=== PATIENT | male | born 1950 | race Caucasian/White ===

== ENCOUNTER → 2017-08-14 | Outpatient (CLI) | payer BC, OTHER ==
[~2017-08-14] MED LIST: ALKA-SELTZER B324 MG PO; AMBIEN 5 MG TABL5 M1 PO; ASPIR 8181 MG PO; ASPIRIN325 PO; BLOOD PRESSURE MED; CARVEDILOL3.125 MG PO; CARVEDILOL6.25 MG PO; CENTRUM SILVER1 EAC2 PO; DEMADEX 2020 MG/1 TA PO; DEMADEX20 MG PO; FLOMAX0.4 MG PO; GLIPIZIDE5 MG PO; K-DUR 20 MEQ T20 MEQ PO; KLOR-CON 1010 MEQ PO; LASIX 20 MG TAB20 MG PO; MAG6464 MG PO; NICOTINE TRANSD21 M1 TRANSDERM; NORCO 5-325 TA1 EACH PO; NYSTATIN100000 UNI SWISH&SPIT; PREDNISONE 20 M20 M1 PO; TYLENOL325 MG PO
== END ==
LOC: RAD 09:28
DX: I51.7 Cardiomegaly (principal)

== ENCOUNTER → 2017-08-29 | Outpatient (CLI) | payer BC, OTHER | LOC: RAD 10:30 | DX: R06.00 Dyspnea, unspecified (principal) ==

== ENCOUNTER → 2017-09-08 | Outpatient (CLI) | payer BC, OTHER | LOC: RAD 09:22 | DX: I51.7 Cardiomegaly (principal) ==

== ENCOUNTER 2017-09-24 12:15 | Inpatient (IN) | payer BC, OTHER ==
[~2017-09-24] VITALS: Ht 172.7 cm; Wt 114.3 kg
--- NOTE | ~2017-09-24 | EKG ---
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: alix : 1950 Requested By: Agustin Khoury Order Number: [id number] MD: Jarret Izquierdo Measurements Intervals [place] Rate: 55 P: AK: QRS: -90 QRSD: 158 T: 81 QT: 511 QTc: 489 Interpretive Statements Sinus bradycardia with competing junctional rhythm IVCD Inferior infarct, old Anterior infarct, old Compared to ECG 09/24/2017 12:26:14 Sinus tachycardia no longer present Atrial premature complex(es) no longer present Nonspecific intraventricular conduction delay is present Electronically Signed On 09-27-2017 8:02:36 CDT by Jarret Izquierdo [email or web address] <ELECTRONICALLY SIGNED> By: Jarret Izquierdo MD, [facility] 09/27/17 0802 0119 0119 Jarret Izquierdo MD, [facility] /EPI
--- NOTE | ~2017-09-24 | HC ---
[facility] [place] [address] CONSULTATION Name: VISHNU HOWARD Room #: 218-P [facility] IN ..#: [id number] Admission: 09/24/17 Attend Phys: Fab Navarro MD Discharge: 10/03/17 Date of : 46 Report #: [id number] THIS REPORT FOR: //name// CC: Fab Navarro DATE OF SERVICE: 10/02/2017 HISTORY OF PRESENT ILLNESS: The patient is a 67-year-old white male who was admitted with increasing shortness of breath. He was noted to have congestive heart failure, acute on chronic with COPD and he had a code blue respiratory arrest with intubation on 09/26/2017. He had hypoxemic respiratory failure, Klebsiella pneumonia. He has yriappov-po-pgswyk cardiomyopathy with ejection fraction of 35%. He had problems with urinary retention, was started on Flomax. He has pkym-hb-wmfzxowk aortic stenosis. He has been transferred to the progressive care unit. He has medical complexity with generalized debilitation. We are seeing him in rehabilitation medicine consultation. PAST MEDICAL HISTORY: Lqb-wjrdomf-npbbhlwss diabetes mellitus, sleep apnea with CPAP, right fem to below knee popliteal bypass, exogenous obesity. HABITS: Tobacco abuse, 2 packs per day for 50 years. Former smoker, quit greater than a year ago. History of alcohol 2-3 drinks per dinner. ALLERGIES: No known drug allergies. SOCIAL HISTORY: Lives in a house with his , 2 steps in. He did not utilize gait aids. He has home CPAP. She works outside the home. She is apparently getting kidney surgery tomorrow per his history. REVIEW OF SYSTEMS: Did not offer any current complaints of chest pain, shortness of breath or abdominal discomfort. No focal extremity pain complaints. Notes that he is weak. PHYSICAL EXAMINATION: GENERAL: A 67-year-old white male in no obvious distress. VITAL SIGNS: Last recorded temperature 97.3, pulse 80, respirations 18, and blood pressure 105/49. The patient is alert. HEENT: Appeared to be benign. NEUROLOGIC: Cranial nerves are grossly intact. Facies are symmetric. He has functional range of motion of both upper extremities with strength grade 4-/5. DTRs are trace to 1. He does have exogenous obesity. EXTREMITIES: Lower extremities, no focal calf swelling. Strength is grade 4-/5. Tone appeared to be intact. Sit to stand is contact guard assistance with gait 50 feet contact guard assistance with the walker. ASSESSMENT: A 67-year-old white male with the following problems: 1. Medical complex with generalized debilitation. 2. Acute combined systolic and diastolic heart failure. [address] [address] CONSULTATION Name: VISHNU HOWARD Room #: 218-[facility] IN M.R.#: [id number] Admission: 09/24/17 Attend Phys: Fab Navarro MD Discharge: 10/03/17 Date of : 46 Report #: [id number] 3. Moderately severe cardiomyopathy. 4. Hypoxemic respiratory failure. 5. Klebsiella pneumonia. 6. Acute renal insufficiency. 7. Urinary retention with Flomax added. 8. Hypertension. 9. Diabetes mellitus. 10. Peripheral vascular disease. 11. Obstructive sleep apnea on CPAP. 12. Exogenous obesity. PLAN: Occupational therapy is to evaluate. Physical therapy is underway. We will assess how he does with his therapies and check with his insurance regarding rehab therapy options. We will be glad to follow along with you regarding his rehab therapy needs. <ELECTRONICALLY SIGNED> By: Simon Henry MD 10/10/17 1030 1030 1215 Simon Henry MD /[facility]
--- NOTE | ~2017-09-24 | EKG ---
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: Doreen MORIN : 1950 Requested By: Myra Bowles Order Number: [id number] MD: Jarret Izquierdo Measurements Intervals [place] Rate: 116 P: 62 SD: 159 QRS: -63 QRSD: 106 T: 93 QT: 350 QTc: 487 Interpretive Statements Sinus tachycardia Atrial premature complex Left atrial enlargement RSR' in V1 or V2, probably normal variant Inferior infarct, old Poor R wave progression Baseline wander in lead(s) V2,V3 Compared to ECG 11/19/2015 07:02:34 Atrial premature complex(es) now present Nonspecific change in the ST and T-wave segments Electronically Signed On 09-24-2017 14:35:22 CDT by Jarret Izquierdo [email or web address] <ELECTRONICALLY SIGNED> By: Jarret Izquierdo MD, [facility] 09/24/17 1435 1226 1226 Jarret Izquierdo MD, [facility] /EPI
--- NOTE | ~2017-09-24 | HC ---
[facility] [place] [address] CONSULTATION Name: VISHNU HOWARD Room #: 218-P [facility] IN M.R.#: [id number] Admission: 09/24/17 Attend Phys: Fab Navarro MD Discharge: 10/03/17 Date of : 46 Report #: [id number] THIS REPORT FOR: //name// CC: Fab Navarro DATE OF SERVICE: 09/25/2017 REASON FOR CONSULTATION: Dyspnea. IMPRESSION: 1. Dyspnea, likely related to congestive heart failure. 2. Congestive heart failure, acute on chronic. 3. Chronic obstructive pulmonary disease. 4. Sleep apnea. 5. Acute kidney injury. PLAN: I agree with diuresis, aerosol therapy. We will hold his Stiolto for now. A CT chest will be done. We will follow closely with you. HISTORY OF PRESENT ILLNESS: A 67-year-old with history of cough, whitish sputum, increasing peripheral edema, orthopnea. No fever, chills or night sweats. No nausea or vomiting. Negative history of coronary artery disease, history of mitral disease home veds reviewed PAST SURGICAL HISTORY: Include peripheral vascular bypass, appendectomy, hernia repair, hydrocele, tooth extraction. MEDS REVIEWED ALLERGY PEN G SOCIAL HISTORY: Quit smoking in 2015, 2 packs a day for 50 years; has quit Positive ETOH. REVIEW OF SYSTEMS: Positive shortness of breath, cough, peripheral edema. Denies depression. PHYSICAL EXAMINATION: VITAL SIGNS: Temperature 97.2, pulse 103, respiration 28, BP 100/61. EYES: Negative icterus. NECK: Negative JVD. LUNGS: Showed decreased breath sounds. No wheeze. HEART: Regular. ABDOMEN: Bowel sounds present. EXTREMITIES: Showed trace edema. LABORATORY DATA: A pH 7.56, pCO2 of 24, pO2 130 on room air. Lactate 2.51. [facility] [address] [place] [address] CONSULTATION Name: VISHNU HOWARD Room #: 218-P [facility] IN [facility]#: [id number] Admission: 09/24/17 Attend Phys: Fab Navarro MD Discharge: 10/03/17 Date of : 46 Report #: [id number] Venous Doppler negative. White count 13.2, hemoglobin 15, platelets 228, creatinine of 1.6. We will follow closely with you. <ELECTRONICALLY SIGNED> By: Kiarra Roland MD 10/12/17 1054 1518 1755 Kiarra Roland MD /nt
--- NOTE | ~2017-09-24 | HC ---
[facility] [place] [address] CONSULTATION Name: VISHNU HOWARD Room #: 239-P ADM IN M.R.#: [id number] Admission: 09/24/17 Attend Phys: Fab Navarro MD Discharge: Date of : 46 Report #: [id number] THIS REPORT FOR: //name// CC: Fab Navarro REASON FOR CONSULTATION: Shortness of breath. HISTORY OF PRESENT ILLNESS: The patient is a 67-year-old gentleman with a history of peripheral vascular disease with peripheral revascularization, hypertension, sleep apnea and recently diagnosed diabetes. He now presents with 2-3 weeks of progressive lower extremity edema, abdominal bloating and shortness of breath. He has been severely orthopneic. He denies chest heaviness or pressure. An outpatient echocardiogram on 08/16/2017, which I reviewed demonstrated moderately severe left ventricular dysfunction with an ejection fraction of 30-35% with biatrial enlargement, aortic valve was moderately calcified and mild to moderately stenotic with a calculated valve area of 1.3 cm2. Mild mitral annular calcification was present with moderately severe to more likely severe mitral insufficiency. He denies a prior history of coronary artery disease. His breathing seemed to get worse earlier in the year when he had recurrent bouts of pneumonia in association with a tooth abscess. He has not been using his CPAP due to his breathlessness. ALLERGIES: HE IS ALLERGIC TO PENICILLIN. MEDICATIONS: Include aspirin, Lasix 20 mg daily, potassium 10 mEq daily, glipizide 5 mg twice daily. PAST MEDICAL HISTORY: Medical records have been reviewed and include a history of a fem distal bypass, sleep apnea, diabetes with a recent hemoglobin A1c of 5.2%, history of fungal pneumonia remotely. SOCIAL HISTORY: Former smoker. FAMILY HISTORY: Unremarkable for premature coronary artery disease. REVIEW OF SYSTEMS: All systems negative except as that noted above. PHYSICAL EXAMINATION: GENERAL: Reveals a pleasant gentleman who is in mild respiratory distress. VITAL SIGNS: Blood pressure is 151/71, heart rate of 110, respiratory rate of 32, oxygen saturations are 93% on supplemental oxygen. HEENT: There are neither xanthelasma, subcutaneous xanthomata, oral mucosal or digital cyanosis or kyphoscoliosis present. CHEST: Reveals diminished breath sounds at both bases. CARDIAC: Reveals a regular rate and rhythm with a 2/6 systolic murmur at the left sternal border. There is a 1/6 systolic murmur at the base. ABDOMEN: Soft and nontender. [facility] [address] [place] [address] CONSULTATION Name: VISHNU HOWARD Room #: 239-P [facility] IN [facility].#: [id number] Admission: 09/24/17 Attend Phys: Fab Navarro MD Discharge: Date of : 46 Report #: [id number] EXTREMITIES: With 1-2+ pedal edema. Radial pulses are 2+. NEUROLOGIC: He is alert with a nonfocal exam. DIAGNOSTIC DATA: EKG demonstrates sinus tachycardia with prior inferior infarct. Sodium is 130, potassium 3.6, creatinine 1.6, glucose 130. Troponin 0.07. ProBNP of 5800. White count 10.3, hemoglobin 15, hematocrit 43, platelet count 259. Chest x-ray demonstrates a small left effusion versus possible scarring and cardiomegaly. IMPRESSION: 1. Acute combined systolic and diastolic heart failure. 2. Moderately severe cardiomyopathy with an ejection fraction of 30-35%, mild to moderate aortic stenosis; severe mitral insufficiency. 3. Hypertension. 4. Diabetes. 5. Peripheral vascular disease. 6. Sleep apnea. RECOMMENDATIONS: 1. IV Lasix. 2. LATOYA and/or ARB therapy as well as carvedilol as hemodynamics allow. 3. Coronary angiography at some point. I have discussed these issues with the patient and his grandson. Further thoughts will be forthcoming based on this evaluation. Thank you for asking me to participate in his care. <ELECTRONICALLY SIGNED> By: Jarret Izquierdo MD, FACC 09/27/17 0857 1521 0724 Jarret Izquierdo MD, FACC /nt
--- NOTE | ~2017-09-24 | HC ---
[facility] [place] [address] CONSULTATION Name: VISHNU HOWARD Room #: 218-P ADM IN M.R.#: [id number] Admission: 09/24/17 Attend Phys: Fab Navarro MD Discharge: Date of : 46 Report #: [id number] THIS REPORT FOR: //name// CC: Fab Navarro REASON FOR CONSULTATION: Acute kidney injury. REASON FOR PRESENTATION: Cough and weakness. HISTORY OF PRESENT ILLNESS: A 67-year-old with history of peripheral vascular disease, status post revascularizations; hypertension, and chronic kidney disease. He is also known to have a bad heart with left ejection fractions of around 30% associated with severe mitral regurgitations. He presented to the emergency room yesterday complaining of shortness of breath. This was also associated with increasing bilateral lower extremity edema. He is known to have multiple comorbid conditions including his cardiomyopathy. He is also known to have obstructive sleep apnea. He was evaluated by Dr. Navarro few weeks ago. Recommendation was for him to be admitted; however, he refused. Because of the worsening of the symptoms, he presented for further evaluation and management. On presentation to the hospital, the patient's creatinine was around 1.6, which is his most recent labs from September 2017. After receiving a CT angiogram, his creatinine was up to 2.5. The patient's condition deteriorated overnight, code blue event had been initiated and the patient was hypotensive. He was intubated. He was moved to the intensive care unit. I am being asked to evaluate him for the kidney issues and manage his volume status. PAST MEDICAL HISTORY: 1. Obstructive sleep apnea. 2. Chronic kidney disease. 3. Peripheral vascular disease. 4. Hypertension. 5. Appendectomy. 6. Post revascularization. 7. Hernial repair. 8. Hydrocele. SOCIAL HISTORY: He quit smoking in 2014. No drug or alcohol abuse. ALLERGIES: PENICILLIN. HOME MEDICATIONS: 1. Acetaminophen. 2. Glipizide. 3. Lasix. 4. Potassium. FAMILY HISTORY: Currently, the patient is intubated and not able to provide me [facility] [address] [place] [address] CONSULTATION Name: ANITAVISHNU W Room #: 218-P [facility] IN ..#: [id number] Admission: 09/24/17 Attend Phys: Fab Navarro MD Discharge: Date of : 46 Report #: [id number] with the family history. REVIEW OF SYSTEMS: Unobtainable given the patient's mental status. PHYSICAL EXAMINATION: GENERAL: He is intubated. VITAL SIGNS: Blood pressure is marginal at 106/68. HEAD AND NECK: ET tube. CHEST: Bilateral crackles. CARDIOVASCULAR: Regular with no rub. ABDOMEN: Soft, nontender. LOWER EXTREMITIES: Edema present bilaterally. LABORATORY VALUES: Reviewed. White blood cell count 17,000. Chemistry from today revealed a sodium of 131, potassium 4.4, chloride of 93, BUN of 42, and a creatinine of 2.5. Serology is still pending. Microbiology pending. Chest x-ray reviewed, bilateral infiltrates present. ASSESSMENT, IMPRESSION, AND PLAN: 1. Respiratory failure. 2. Acute kidney injury. 3. Chronic kidney disease. 4. Cardiomyopathy. 5. Severe mitral regurgitation. 6. Contrast-induced nephropathy. 7. Obstructive sleep apnea. 8. Diabetes mellitus. 9. Hypertension. 10. From the renal perspective, his acute kidney injury is expected post-CT angiogram. 11. As for now, I will discontinue the IV fluid. 12. Initiate appropriate acute kidney injury workup. 13. Strict input and output. 14. Avoid further nephrotoxins. 15. Augment his heart medications. 16. Start Lasix drip. <ELECTRONICALLY SIGNED> By: Martin Cuevas MD 09/30/17 0923 0921 1235 Martin Cuevas MD /nt
--- NOTE | ~2017-09-24 | 2DMMODE ---
[facility] [address] [place] [address] 2 D/M-MODE ECHOCARDIOGRAM Name: ANITAVISHNU W Room #: 218-P ADM IN M.R.#: [id number] Admission: 09/24/17 Attend Phys: Fab Navarro, Discharge: Date of : 46 Date of Service: 10/02/17 1041 Report #: [id number] THIS REPORT FOR: //name// APPROVED REPORT Study performed: 10/02/2017 08:33:44 EXAM: Comprehensive 2D, Doppler, and color-flow Echocardiogram Patient Location: Echo lab Room #: 218 Status: routine BSA: 2.25 HR: 80 bpm BP: 105/49 mmHg Other Information Study Quality: Adequate Indications Mitral regurgitation. Hx: CHF, CM, DM, HTN. 2D Dimensions RVDd: 48.79 mm LVEF(%): 22.60 (>50%) IVSd: 10.88 (7-11mm) LVOT Diam: 26.48 (18-24mm) LVDd: 75.44 mm PWd: 10.23 (7-11mm) Ascending Ao: 40.51 (22-36mm) LVDs: 67.33 (25-40mm) Aortic Root: 39.89 mm Faustin's LVEF: 22.60 % Volumes Left Atrial Volume (Systole) Single Plane 4CH: 89.08 mL Single Plane 2CH: 145.92 mL LA ESV Index: 55.00 mL/m2 Aortic Valve AoV Peak Miller.: 2.36 m/s AO Peak Gr.: 22.27 mmHg LVOT Max P.17 mmHg AO Mean Gr.: 12.79 mmHg AO V2 Mean: 1.70 m/s LVOT Max V: 0.89 m/s AO V2 VTI: 45.59 cm REMI Vmax: 2.08 cm2 AI Vmax: 3.18 m/s AI Osborne: 4.07 m/s2 AI PHT: 226.63 ms [facility] [place] [address] 2 D/M-MODE ECHOCARDIOGRAM Name: VISHNU HOWARD Room #: 218-P [facility] IN ..#: [id number] Admission: 09/24/17 Attend Phys: Fab Navarro, Discharge: Date of : 46 Date of Service: 10/02/17 1041 Report #: [id number] Mitral Valve MV Decel. Time: 105.65 ms MV E Max Miller.: 0.91 m/s Pulmonary Valve PV Peak Miller.: 0.50 m/s PV Peak Gr.: 1.00 mmHg Tricuspid Valve TR Peak Miller.: 3.12 m/s RAP Estimate: 15.00 mmHg TR Peak Gr.: 38.88 mmHg PA Pressure: 54.00 mmHg Left Ventricle Left ventricle is moderately dilated. There is normal left ventricular wall thickness. Disrupted false tendon in mid-ventricle Left ventricular systolic function is moderate to severely decreased. LVEF 35%. This study is not technically sufficient to allow evaluation of the LV diastolic function. Right Ventricle The right ventricle is normal size. The right ventricular systolic function is low normal. Atria Left atrium is severely dilated. Right atrium is severely dilated. Aortic Valve Aortic valve is moderately calcified. Moderate aortic regurgitation. Mild aortic stenosis. Peak pressure gradient of 22mmHg, mean gradient of 13mmHg. Mitral Valve The mitral valve is normal in structure. Severe mitral regurgitation No evidence of mitral valve stenosis. Tricuspid Valve The tricuspid valve is normal in structure. Moderate tricuspid regurgitation. Estimated PAP is 55mmHg. Pulmonic Valve The pulmonary valve is normal in structure. Trace pulmonic regurgitation. Great Vessels [facility] [address] [place] [address] 2 D/M-MODE ECHOCARDIOGRAM Name: VISHNU HOWARD Room #: 218-P [facility] IN [facility]#: [id number] Admission: 09/24/17 Attend Phys: Fba Navarro, Discharge: Date of : 46 Date of Service: 10/02/17 1041 Report #: [id number] Aortic root is dilated at 4.0cm. Ascending aorta is dilated at 4.1cm. IVC is dilated and collapses <50% with inspiration. Pericardium There is no pericardial effusion. <Conclusion> Left ventricular systolic function is moderate to severely decreased. LVEF 35%. Both atria are dilated. Aortic valve is moderately calcified. Moderate insufficiency Mild aortic stenosis. Peak pressure gradient of 22mmHg, mean gradient of 13mmHg. The mitral valve is normal in structure. Severe mitral regurgitation Moderate tricuspid regurgitation. Estimated pulmonary artery pressure of 55mmHg. Ascending aorta is dilated at 4.1cm. There is no pericardial effusion. <ELECTRONICALLY SIGNED> By: Jarret Izquierdo MD, FACC 10/02/17 1041 104 40 Jarret Izquierdo MD, FACC /INF
--- NOTE | ~2017-09-24 | HC ---
[facility] [place] [address] CONSULTATION Name: VISHNU HOWARD Room #: 239-P ADM IN M.R.#: [id number] Admission: 09/24/17 Attend Phys: Fab Navarro MD Discharge: Date of : 46 Report #: [id number] THIS REPORT FOR: //name// CC: Fab Navarro REASON FOR CONSULTATION: I was asked to evaluate concerning possible sepsis. HISTORY OF PRESENT ILLNESS: The patient is a 67-year-old who presented on 09/24/2017 to the Emergency Room with shortness of breath, productive cough with onset approximately 3 weeks ago. He does have underlying cardiomyopathy and COPD. He has been undergoing treatment for congestive heart failure. In addition, he has had PND and orthopnea. He had been treated as an outpatient with antibiotic therapy. He had also been given increased Lasix doses for his congestive heart failure. He was seen in the outpatient clinic and recommended admission due to decompensated congestive heart failure. The patient initially declined, but then came into the Emergency Room. He denies any fever, chills or sweats. No purulent sputum production. Following admission to the hospital, he developed worsening shortness of breath and went into respiratory failure. He became bradycardiac and required intubation and mechanical ventilation last evening. He is currently sedated. Hemodynamically stable following a short course of Levophed. He is now off this, on FIO2 of 40%. He has had minimal tracheal secretions. He still has peripheral edema. His urine output was up to 1600 mL in the past 24 hours. The patient is sedated and unable to give review of systems. He does have oral intubation, both ET tube and orogastric tube. IV is in place. Indwelling Bearden catheter. No recorded diarrhea. ALLERGIES: PENICILLIN. MEDICATIONS: As noted on his MAR including Lasix, potassium, glipizide, multivitamin prior to his admission. CURRENT MEDICATIONS: As noted on his SEP. Did receive one dose of Augmentin. PAST MEDICAL HISTORY: Appendectomy, gastroesophageal reflux, mitral regurgitation, umbilical herniorrhaphy, bilateral cataract surgery, hydrocele surgery, diabetes, obstructive sleep apnea, tobacco use, right fem below knee popliteal bypass. FAMILY HISTORY: Noncontributory. SOCIAL HISTORY: Past smoker, moderate alcohol intake. PHYSICAL EXAMINATION: VITAL SIGNS: Afebrile, blood pressure is stable 100/61 with a MAP of 74. GENERAL: He was orally intubated and sedated, does arouse. He is in 2-point restraints. IV site unremarkable. SKIN: Unremarkable. 2+ [place] [address] CONSULTATION Name: VISHNU HOWARD Room #: 239-P [facility] IN M.R.#: [id number] Admission: 09/24/17 Attend Phys: Fab Navarro MD Discharge: Date of : 46 Report #: [id number] HEENT: Unremarkable. NECK: Supple. LUNGS: Few crackles in the bases bilaterally without consolidation. HEART: Regular, without appreciable murmur. ABDOMEN: Soft, no hepatosplenomegaly or mass appreciated. GENITOURINARY: External genitalia unremarkable. LABORATORY STUDIES: Sodium 131, potassium 4, bicarbonate 25. Creatinine initially 1.6, now 2.5. AST 157, ALT 120, alkaline phosphatase 111, bilirubin 2.3, lactate 6.2, procalcitonin 0.09. Troponin 0.08. BNP was 5876. INR 1.5. Hemoglobin 15.4, platelet count 227,000, white count was 16.7 with 78% segs, 13% lymphs. Urinalysis 6-15 wbc's, many rbc's, few bacteria. Blood urine culture and sputum culture pending. Chest x-ray, cardiomegaly with vascular congestion. CT scan of the chest yesterday showed mediastinal adenopathy, suspected cirrhosis, cardiomegaly. Echocardiogram showed EF of 35% with moderate aortic stenosis and severe mitral regurgitation. IMPRESSION: A 67-year-old with underlying cardiomyopathy and bivalvular heart disease, chronic obstructive pulmonary disease, respiratory failure. No acute pulmonary infiltrates otherwise. He does have a leukocytosis. He was given corticosteroids last evening. He also has acute renal failure in addition to his respiratory failure. His lactate went up to 6.2, but his procalcitonin was 0.09. I am suspecting this is as primarily cardiogenic issue with poor perfusion, this in the setting of underlying chronic obstructive pulmonary disease, now has acute renal failure and underlying suspected cirrhosis of the liver, yet to be further defined. He is allergic to PENICILLIN, reaction not known. RECOMMENDATIONS: Due to his leukocytosis and multisystem failure, recommend empiric antibiotic coverage for the next 24-48 hours pending culture results. My suspicion, however, this is a primary cardiac decompensation with congestive heart failure. <ELECTRONICALLY SIGNED> By: Nicanor Grace MD 09/27/17 1105 [id number] Nicanor Grace MD /nt
[~2017-09-24 12:15] MED LIST changes: -AMBIEN 5 MG TABL5 M1 PO; -ASPIR 8181 MG PO; -CARVEDILOL3.125 MG PO; -CARVEDILOL6.25 MG PO; -DEMADEX 2020 MG/1 TA PO; -DEMADEX20 MG PO; -FLOMAX0.4 MG PO; -K-DUR 20 MEQ T20 MEQ PO; -MAG6464 MG PO; -NYSTATIN100000 UNI SWISH&SPIT; -PREDNISONE 20 M20 M1 PO
[2017-09-24 12:21] VITALS: BP 151/75
[2017-09-24 12:51] LABS: ABSOLUTE NEUTROPHILS 8.2 thou/uL (1.4-8.2); BASOPHILS 1.1 % (0.0-2.0); EOSINOPHILS 2.8 % (0.0-3.0); HEMATOCRIT 43.7 % (42.0-52.0); MCHC 34.2 g/dL (28.0-37.0); MCV 96.6 fL (80.0-100.0); MONOCYTES 5.4 % (1.0-8.0); POLYS 79.7 % (36.0-66.0); RBC 4.53 mil/uL (4.50-6.00); RDW 15.4 % (10.5-14.5); WBC 10.3 thou/uL (4.0-11.0)
[2017-09-24 12:52] LABS: CALCIUM 9.5 mg/dL (8.5-10.1); CREATININE 1.6 mg/dL (0.7-1.3); POTASSIUM 3.6 mmol/L (3.5-5.1)
[2017-09-24 12:58] LABS: URINE BILIRUBIN NEGATIVE (Negative); URINE BLOOD NEGATIVE (Negative); URINE CLARITY CLEAR; URINE COLOR YELLOW; URINE GLUCOSE-RANDOM* NEGATIVE (Negative); URINE KETONES NEGATIVE (Negative); URINE LEUKOCYTES NEGATIVE (Negative); URINE NITRITE NEGATIVE (Negative); URINE PROTEIN (DIPSTICK) NEGATIVE (Negative); URINE SPECIFIC GRAVITY <= 1.005 (1.005-1.035); URINE UROBILINOGEN 0.2 E.U./dl (0.2-1.0)
[2017-09-24 13:01] LABS: ALBUMIN 3.6 g/dL (3.4-5.0); TOTAL BILIRUBIN 2.2 mg/dL (<0.1-1.0); TOTAL PROTEIN 7.3 g/dL (6.4-8.2); TROPONIN-I 0.07 ng/mL (<0.06)
[2017-09-24 14:03] LABS: LARGE PLATELETS RARE; PLATELET COUNT 259 thou/uL (150-400); PLATELET ESTIMATE NORMAL
[2017-09-24 17:07] VITALS: BP 151/75
[2017-09-24 17:51] VITALS: BP 142/76
[2017-09-24 21:46] VITALS: BP 104/59
[2017-09-25 00:36] VITALS: BP 107/61
[2017-09-25 04:45] VITALS: BP 110/64
[2017-09-25 05:43] LABS: CALCIUM 9.2 mg/dL (8.5-10.1); CREATININE 1.6 mg/dL (0.7-1.3); MAGNESIUM 1.9 mg/dL (1.8-2.4); POTASSIUM 4.3 mmol/L (3.5-5.1)
[2017-09-25 07:51] LABS: HEMATOCRIT 45.3 % (42.0-52.0); MCH 32.4 pg (26.0-34.0); MCHC 33.1 g/dL (28.0-37.0); MCV 97.7 fL (80.0-100.0); RBC 4.63 mil/uL (4.50-6.00); RDW 15.5 % (10.5-14.5); WBC 13.2 thou/uL (4.0-11.0)
[2017-09-25 07:59] VITALS: BP 110/61
[2017-09-25 11:46] VITALS: BP 104/62
[2017-09-25 12:06] LABS: BE(vivo) 0.8 mmol/L (-2 to +3); PO2 130.3 mmHg (80.0-100.0)
[2017-09-25 15:08] VITALS: BP 100/61
[2017-09-25 19:13] VITALS: BP 113/65
[2017-09-26] VITALS (52 sets, daily range): BP systolic 53–132; BP diastolic 11–107
[2017-09-26 00:18] LABS: BE(vivo) -7.1 mmol/L (-2 to +3); HCO3 13.6 mmol/L (22.0-26.0); PO2 128.8 mmHg (80.0-100.0); pH 7.464 (7.360-7.450); sO2 98.8 % (92.0-98.0)
[2017-09-26 00:19] LABS: PCO2 19.4 mmHg (35.0-45.0)
[2017-09-26 01:01] LABS: HEMATOCRIT 46.1 % (42.0-52.0); HEMOGLOBIN 15.4 gm/dL (14.0-18.0); MCH 32.6 pg (26.0-34.0); MCHC 33.4 g/dL (28.0-37.0); MCV 97.8 fL (80.0-100.0); RBC 4.71 mil/uL (4.50-6.00); RDW 15.2 % (10.5-14.5); WBC 17.1 thou/uL (4.0-11.0)
[2017-09-26 01:09] LABS: CALCIUM 9.3 mg/dL (8.5-10.1); CREATININE 2.5 mg/dL (0.7-1.3)
[2017-09-26 01:12] LABS: POTASSIUM 6.3 mmol/L (3.5-5.1)
[2017-09-26 01:15] LABS: ALBUMIN 3.6 g/dL (3.4-5.0); TOTAL BILIRUBIN 2.3 mg/dL (<0.1-1.0); TOTAL PROTEIN 7.3 g/dL (6.4-8.2)
[2017-09-26 01:25] LABS: BASOPHILS 0.9 % (0.0-2.0); EOSINOPHILS 0.5 % (0.0-3.0); LYMPHOCYTES 13.9 % (24.0-44.0); MONOCYTES 6.5 % (1.0-8.0); POLYS 78.2 % (36.0-66.0); WBC 16.7 thou/uL (4.0-11.0)
[2017-09-26 01:36] LABS: APTT 32.3 Seconds (24.5-32.8); D-DIMER 1.18 ug/mLFEU (0.19-0.50); FIBRINOGEN 359.8 mg/dL (210-360); INR 1.5; PROTIME 15.3 Seconds (9.3-11.4)
[2017-09-26 01:39] LABS: BE(vivo) -13.5 mmol/L (-2 to +3); HCO3 11.6 mmol/L (22.0-26.0); PCO2 26.7 mmHg (35.0-45.0); PO2 508.4 mmHg (80.0-100.0); sO2 99.9 % (92.0-98.0)
[2017-09-26 01:40] LABS: pH 7.257 (7.360-7.450)
[2017-09-26 03:50] LABS: URINE BILIRUBIN 1+ (Negative); URINE BLOOD 3+ (Negative); URINE CLARITY CLEAR; URINE COLOR YELLOW; URINE GLUCOSE-RANDOM* NEGATIVE (Negative); URINE KETONES NEGATIVE (Negative); URINE NITRITE-REFLEX NEGATIVE (Negative); URINE PROTEIN (DIPSTICK) 2+ (Negative); URINE SPECIFIC GRAVITY 1.025 (1.005-1.035)
[2017-09-26 04:11] LABS: ICTOTEST (BILI CONFIRMATORY) Positive (Negative); URINE LEUKOCYTES-REFLEX TRACE (Negative)
[2017-09-26 04:14] LABS: CASTS None Seen /LPF (None Seen); MUCUS 0-3 Light strn/LPF (None Seen); SQUAMOUS 0-3 Few /LPF (0-3)
[2017-09-26 04:15] LABS: AMORPHOUS URATES Few /LPF (None Seen); BACTERIA-REFLEX 1-9 Few /HPF (None Seen); CRYSTALS None Seen /LPF (None Seen); TRANSITIONAL EPITHEL CELL 0-3 Few /LPF (None Seen); URINE RBC >20 Many /HPF (0-2); URINE WBC-REFLEX 6-15 Few /HPF (0-5)
[2017-09-26 04:58] LABS: CALCIUM 8.8 mg/dL (8.5-10.1); CREATININE 2.5 mg/dL (0.7-1.3)
[2017-09-26 05:15] LABS: POTASSIUM 4.4 mmol/L (3.5-5.1)
[2017-09-26 06:56] LABS: BE(vivo) -0.7 mmol/L (-2 to +3); HCO3 24.2 mmol/L (22.0-26.0); pH 7.389 (7.360-7.450); sO2 99.4 % (92.0-98.0)
[2017-09-27] VITALS (25 sets, daily range): BP systolic 86–113; BP diastolic 46–63
[2017-09-27 05:13] LABS: CALCIUM 8.9 mg/dL (8.5-10.1); CREATININE 2.3 mg/dL (0.7-1.3); POTASSIUM 4.2 mmol/L (3.5-5.1)
[2017-09-27 09:27] LABS: BE(vivo) 0.9 mmol/L (-2 to +3); HCO3 26.5 mmol/L (22.0-26.0); PCO2 45.8 mmHg (35.0-45.0); PO2 102.5 mmHg (80.0-100.0); pH 7.381 (7.360-7.450); sO2 97.6 % (92.0-98.0)
[2017-09-28] VITALS (25 sets, daily range): BP systolic 82–125; BP diastolic 47–85
[2017-09-28 04:40] LABS: ALBUMIN 3.1 g/dL (3.4-5.0); CALCIUM 9.2 mg/dL (8.5-10.1); CREATININE 2.1 mg/dL (0.7-1.3); PHOSPHORUS 6.2 mg/dL (2.5-4.9); POTASSIUM 3.7 mmol/L (3.5-5.1)
[2017-09-28 05:31] LABS: BE(vivo) 4.1 mmol/L (-2 to +3); HCO3 28.9 mmol/L (22.0-26.0); PCO2 43.8 mmHg (35.0-45.0); PO2 95.7 mmHg (80.0-100.0); pH 7.437 (7.360-7.450); sO2 97.5 % (92.0-98.0)
[2017-09-28 11:01] LABS: BE(vivo) 6.9 mmol/L (-2 to +3); HCO3 32.2 mmol/L (22.0-26.0); PCO2 47.8 mmHg (35.0-45.0); PO2 98.1 mmHg (80.0-100.0); pH 7.446 (7.360-7.450); sO2 97.6 % (92.0-98.0)
[2017-09-29] VITALS (16 sets, daily range): BP systolic 97–122; BP diastolic 53–85
[2017-09-29 06:19] LABS: ALBUMIN 3.6 g/dL (3.4-5.0); CALCIUM 9.7 mg/dL (8.5-10.1); CREATININE 2.1 mg/dL (0.7-1.3); POTASSIUM 3.6 mmol/L (3.5-5.1)
[2017-09-30 04:14] LABS: ALBUMIN 3.4 g/dL (3.4-5.0); CALCIUM 9.8 mg/dL (8.5-10.1); CREATININE 2.1 mg/dL (0.7-1.3); PHOSPHORUS 4.6 mg/dL (2.5-4.9)
[2017-09-30 04:33] VITALS: BP 106/57
[2017-09-30 07:55] VITALS: BP 103/54
[2017-09-30 11:25] VITALS: BP 108/59
[2017-09-30 15:25] VITALS: BP 109/59
[2017-09-30 20:03] VITALS: BP 110/61
[2017-10-01 04:24] LABS: ALBUMIN 3.4 g/dL (3.4-5.0); CALCIUM 9.6 mg/dL (8.5-10.1); CREATININE 2.1 mg/dL (0.7-1.3); PHOSPHORUS 5.7 mg/dL (2.5-4.9); POTASSIUM 4.3 mmol/L (3.5-5.1)
[2017-10-01 05:17] VITALS: BP 111/60
[2017-10-01 08:20] VITALS: BP 103/53
[2017-10-01 12:20] VITALS: BP 104/56
[2017-10-01 15:50] VITALS: BP 116/62
[2017-10-01 20:20] VITALS: BP 111/62
[2017-10-02 03:30] LABS: HEMATOCRIT 50.4 % (42.0-52.0); HEMOGLOBIN 16.8 gm/dL (14.0-18.0); MCHC 33.4 g/dL (28.0-37.0); MCV 98.7 fL (80.0-100.0); RBC 5.1 mil/uL (4.50-6.00); RDW 16.3 % (10.5-14.5); WBC 9.3 thou/uL (4.0-11.0)
[2017-10-02 03:44] LABS: ALBUMIN 3.5 g/dL (3.4-5.0); CALCIUM 9.9 mg/dL (8.5-10.1); CREATININE 2.3 mg/dL (0.7-1.3); PHOSPHORUS 6.2 mg/dL (2.5-4.9); POTASSIUM 4.1 mmol/L (3.5-5.1)
[2017-10-02 04:07] VITALS: BP 112/54
[2017-10-02 07:50] VITALS: BP 105/49
[2017-10-02 11:05] VITALS: BP 104/54
[2017-10-02 15:20] VITALS: BP 104/54
[2017-10-02 20:10] VITALS: BP 106/51
[2017-10-03 04:40] VITALS: BP 120/60
[2017-10-03 05:22] LABS: ALBUMIN 3.6 g/dL (3.4-5.0); CALCIUM 10.1 mg/dL (8.5-10.1); CREATININE 2.4 mg/dL (0.7-1.3); POTASSIUM 3.8 mmol/L (3.5-5.1)
[2017-10-03 07:40] VITALS: BP 105/54
[2017-10-03] MEDS ORDERED: FLOMAX0.4 MG PO (10:47)
[2017-10-03] MEDS ORDERED: MAG6464 MG PO (10:48)
[2017-10-03] MEDS ORDERED: AMBIEN 5 MG TABL5 M1 PO (10:48)
[2017-10-03] MEDS ORDERED: ASPIR 8181 MG PO (10:48)
[2017-10-03] MEDS ORDERED: CARVEDILOL6.25 MG PO (10:48)
[2017-10-03] MEDS ORDERED: DEMADEX 2020 MG/1 TA PO (10:49)
[2017-10-03] MEDS ORDERED: PREDNISONE 20 M20 M1 PO (10:49)
[2017-10-03 11:20] VITALS: BP 110/52
[2017-10-03 11:44] LABS: ALBUMIN 3.7 g/dL (3.4-5.0); DIRECT BILIRUBIN 1.1 mg/dL (<0.1-0.3); TOTAL BILIRUBIN 1.9 mg/dL (<0.1-1.0); TOTAL PROTEIN 6.6 g/dL (6.4-8.2)
== END 2017-10-03 15:20 | DRG 208 ==
LOC: ER 12:15 → EROBS 13:41 → 2N 13:41 → ICU 09-26 00:45 → 2N 09-29 12:53
PROVIDERS: Family Medicine; Hospitalist; Internal Medicine; Internal Medicine Nephrology; Internal Medicine Pulmonary Disease; Physician Assistant
DX: J15.0 Pneumonia due to Klebsiella pneumoniae (principal); I50.43 Acute on chronic combined systolic (congestive) and diastolic (congestive) heart failure; J96.01 Acute respiratory failure with hypoxia; N17.9 Acute kidney failure, unspecified; I42.9 Cardiomyopathy, unspecified; I13.0 Hypertensive heart and chronic kidney disease with heart failure and stage 1 through stage 4 chronic kidney disease, or unspecified chronic kidney disease; E87.0 Hyperosmolality and hypernatremia; E11.51 Type 2 diabetes mellitus with diabetic peripheral angiopathy without gangrene; J44.9 Chronic obstructive pulmonary disease, unspecified; I35.0 Nonrheumatic aortic (valve) stenosis; G47.33 Obstructive sleep apnea (adult) (pediatric); N18.9 Chronic kidney disease, unspecified; I34.0 Nonrheumatic mitral (valve) insufficiency; E66.09 Other obesity due to excess calories; R59.0 Localized enlarged lymph nodes; K76.0 Fatty (change of) liver, not elsewhere classified; K74.60 Unspecified cirrhosis of liver; E11.22 Type 2 diabetes mellitus with diabetic chronic kidney disease; Z90.49 Acquired absence of other specified parts of digestive tract; Z98.42 Cataract extraction status, left eye; Z98.41 Cataract extraction status, right eye; Z79.899 Other long term (current) drug therapy; Z87.891 Personal history of nicotine dependence; Z88.0 Allergy status to penicillin; Z68.38 Body mass index [BMI] 38.0-38.9, adult
CPT/HCPCS: 10078; 10081

== ENCOUNTER 2017-10-03 11:36 | Inpatient (IN) | payer BC, OTHER ==
[~2017-10-03] VITALS: Ht 172.7 cm; Wt 103.2 kg
--- NOTE | ~2017-10-03 | H ---
[facility] [place] [address] HISTORY AND PHYSICAL Name: VISHNU HOWARD Room #: 514-P [facility] IN M.R.#: [id number] Admission: 10/03/17 Attend Phys: Simon Henry MD Discharge: Date of : 46 Report #: [id number] THIS REPORT FOR: //name// CC: Simon Navarro DATE OF SERVICE: 10/04/2017 HISTORY AND PHYSICAL/POST-ADMISSION PHYSICIAN EVALUATION HISTORY OF PRESENT ILLNESS: The patient is a 67-year-old white male originally admitted on 09/24/2017 with increased shortness of breath. He was noted to have congestive heart failure, acute on chronic with COPD and had a code blue respiratory arrest with intubation on 09/26/2017. He had hypoxemic respiratory failure and Klebsiella pneumonia. He has moderate to severe cardiomyopathy with ejection fraction of 35%. He has had problems with urinary retention and was started on Flomax. He has [id number] aortic stenosis. He was transferred to the progressive care unit and was noted to have significant generalized debilitation with a decrease from his premorbid functional status. He has been admitted now for acute in-hospital inpatient rehabilitation. PAST MEDICAL HISTORY: Includes non-insulin dependent diabetes mellitus, sleep apnea with CPAP, right fem to below knee popliteal bypass, exogenous obesity. HABITS: Tobacco abuse, 2 packs per day for 50 years. Former smoker, quit greater than a year ago. History of alcohol 2-3 drinks per dinner. ALLERGIES: No known drug allergies. SOCIAL HISTORY: Lives in a house with his , 2 steps in. He did not utilize gait aids. He has a home CPAP. 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 REVIEW OF SYSTEMS: No current complaints of chest pain, shortness of breath, abdominal discomfort. Complains of overall generalized weakness. PHYSICAL EXAMINATION: GENERAL: A 67-year-old obese white male in no obvious distress. VITAL SIGNS: Last recorded temperature 97.2, pulse 72, respirations 16, blood pressure 120/52. He is alert, talkative, no distress. HEENT: Facies are symmetric. CHEST: Sounded clear to auscultation. CARDIOVASCULAR: Regular rate and rhythm. ABDOMEN: Obese, bowel sounds positive, nontender. NEUROLOGIC: His facies appear symmetric and he is able to verbalize well. EXTREMITIES: He has functional range of motion of both upper extremities with strength grade 4-/5. DTRs are trace to 1. Lower extremities, no focal calf [address] [address] HISTORY AND PHYSICAL Name: VISHNU HOWARD Room #: 514-P [facility] IN .R.#: [id number] Admission: 10/03/17 Attend Phys: Simon Henry MD Discharge: Date of : 46 Report #: [id number] swelling. He does have 2+ bilateral lower extremity edema. Strength is a grade 4-/5. Tone appeared to be intact. Functionally, he has been transferring with mod assist. Gait has been short distances with mod assist without a gait device. ASSESSMENT: 1. Medical complexity with generalized debilitation. 2. Acute combined systolic and diastolic heart failure. 3. Moderate severe cardiomyopathy. 4. Hypoxemic respiratory failure. 5. Klebsiella pneumonia. 6. Acute renal insufficiency. 7. Urinary retention with Flomax added. 8. Hypertension. 9. Diabetes mellitus. 10. Peripheral vascular disease. 11. Obstructive sleep apnea on CPAP. 12. Exogenous obesity. PLAN: The patient is admitted for acute in-hospital inpatient rehabilitation. From a postadmission physician evaluation perspective, there are no relevant changes since the preadmission screening. Please see the above review of prior and current medical and functional conditions and comorbidities. Please see the patient's previous and current functional status. As far as risk of complications, he has multiple medical comorbidities as noted above. Initial plan of care involves the interdisciplinary acute inpatient rehabilitation program with goal of maximizing his functional independence, so he can hopefully return back to his prior living situation. Measurable functional goals would be for him to become modified independent with transfers, mobility and ADLs, so that he can return back to the home setting. Prognosis is reasonably good with estimated length of stay probably at least 7-10 days, pending progress. Potential barriers would include his multiple medical comorbidities and decreased functional status. The patient meets diagnostic criteria for an acute in-hospital inpatient rehabilitation stay. He meets medical necessity criteria and we will have the multiple sap bw consultant physicians continue to follow. He does have the tolerance for the rehab therapy program and has appropriate discharge goals back to the home setting. ADDENDUM: The overall plan of care is based on the preadmission screen, post-admission physician evaluation and information garnered from therapy assessments. 1. Estimated length of stay is at least 7-10 days. 2. Medical prognosis is reasonably good. 3. Anticipated interventions includes the interdisciplinary acute inpatient [facility] [address] [place] [address] HISTORY AND PHYSICAL Name: VISHNU HOWARD Room #: 514-P [facility] IN M.R.#: [id number] Admission: 10/03/17 Attend Phys: Simon Henry MD Discharge: Date of : 46 Report #: [id number] rehabilitation program with the goal of maximizing his functional independence, so he can hopefully return back to his prior living situation. 4. Anticipated functional outcomes would be for the patient to become modified independent with transfers, mobility, and ADLs. 5. Discharge destination is back home where he lives with his . 6. Expected therapy by discipline includes PT and OT 1-1/2 hours per day each five days a week throughout the duration of the acute inpatient rehabilitation stay. <ELECTRONICALLY SIGNED> By: Simon Henry MD 10/10/17 1030 0820 [id number] Simon Henry MD /[facility]
--- NOTE | ~2017-10-03 | HC ---
[facility] [place] [address] CONSULTATION Name: VISHNU HOWARD Room #: 514-P ADM IN M.R.#: [id number] Admission: 10/03/17 Attend Phys: Simon Henry MD Discharge: Date of : 46 Report #: [id number] THIS REPORT FOR: //name// CC: Simon Navarro DATE OF SERVICE: 10/07/2017 ATTENDING PHYSICIAN: Simon Henry MD BASIN TENDER: Fab Javier, PhD CLINICAL PRESENTATION: The patient is a 67-year-old male admitted to the rehab unit at [facility] for comprehensive inpatient rehabilitation program to improve functional mobility, activities of daily living and self-care and mental status secondary to deficits from medical complexity with generalized debilitation. His diagnoses include acute combined systolic and diastolic heart failure, moderately severe cardiomyopathy, hypoxemic respiratory failure, Klebsiella pneumoniae, acute renal insufficiency, urinary retention, hypertension, diabetes mellitus, peripheral vascular disease, obstructive sleep apnea on CPAP and exogenous obesity. A complete description of his medical condition and history along with medications can be found in his medical record. Neuropsychological consultation was requested to provide assistance in the assessment of cognitive and emotional status and to provide recommendations and services. Prior to this most recent medical event, he was living independently in his own home with his . The patient has been once and has one child. 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 His reported that his cognitive functioning and behavior began to show a decline beginning in April of 2018. In October, he had developed severe difficulty with breathing and went several days without sleep. The past several months he has had problems with concentration, memory and behavioral issues that suggest perseveration. She reports that he will become over focused and have trouble redirecting attention away from specific ideas and actions. He also had been increasingly irritable with decreased frustration tolerance. His behavior further declined in July and August of 2017. While much improved since his hospitalization, she does not feel that he is back to his prior level of functioning. There is no prior history of treatment for anxiety, depression or substance abuse. [facility] [address] [place] [address] CONSULTATION Name: VISHNU HOWARD Room #: 514-P [facility] IN M.R.#: [id number] Admission: 10/03/17 Attend Phys: Simon Henry MD Discharge: Date of : 46 Report #: [id number] TECHNIQUES UTILIZED: Clinical interview, review of medical records, staff consultation and behavioral observation, mini mental status exam 2 standard version, clock drawing and calibrated ideational fluency assessment (letter and category), and abstract reasoning test. EXAMINATION FINDINGS: The patient was alert and cooperative with the assessment. He was able to provide a partial history of events preceding his hospitalization. The patient was very tangential during the assessment and required frequent redirection to task. Additionally, deficits in verbal fluency were noted throughout the interview. Conversational and spontaneous speech is better maintained that confrontational speech requiring more complex organization. He does not report auditory or visual hallucinations. His mood is somewhat irritable. He has decreased insight into deficits and will tend to confabulate when having difficulty in specific task. He reports longstanding difficulty with sleep. Tiredness and fatigue is also described. His orientation to time is variable, e.g., he reported having a cardiac arrest this last week, while it had been almost 2 weeks ago. He does not report difficulty with memory, verbal fluency, appetite, anxiety, depression, or irritability. He reports having had a mild concussion at age 17. His performance on the MMSE 2 brief version was in the borderline range of impairment with a raw score of 13, T score of 35 and percentile rank of 7. The patient was 3/3 for initial registration, he was 4 or 5 for orientation to time, 5/[address] and 1/3 for immediate recall of 3 items after a brief time delay and distraction. The patient was tangential during the assessment. He also had to rely on the orientation board to assist with orientation. His performance deteriorated on the MMSE 2 standard version to a raw score of 23, T score at 33 and a percentile rank of 4. He was 1/5 for serial sevens, 2/2 for naming, 1/1 for repetition. He was 3/3 for auditory comprehension. He could read and follow a single command, and write a sentence. He was able to copy a simple geometric design. Performance in letter fluency was extremely low with a raw score of 12, T score 27, percentile rank of 1. Moderate deficits in generative speech suggested. Category fluency was extremely low with a raw score of 16, T score 19, percentile rank of less than 1. Overall, total fluency was severely impaired and extremely low with a raw score of 28, T score 19, percentile rank of less than 1. The patient also had difficulty with brief abstract reasoning with a raw score of 4/8 suggesting deficits. [facility] [address] [place] [address] CONSULTATION Name: VISHNU HOWARD Room #: 514-P [facility] IN [place]aquín#: [id number] Admission: 10/03/17 Attend Phys: Simon Henry MD Discharge: Date of : 46 Report #: [id number] The patient was able to draw clock and set the hands at a designated time. However, he had left out one of the numbers and visual spatial organization suggests reduced planning. The patient is presenting with deficits in neurocognitive functioning that involve immediate recall, sustained attention and concentration, and executive functioning. Generative speech is also showing an impairment suggesting difficulty in thought organization in complex verbal expression. Impairment is suggested in planning and problem solving. 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 RECOMMENDATIONS: Continued speech therapy to assist in the use of compensatory strategies for memory, attention/concentration and executive functioning. The patient will benefit from the assistance in developing an organized strategy when engaged in complex problem solving. The use of a memory/orientation notebook will also assist in the development and utilization of compensatory strategies. A followup neuropsychological assessment is indicated upon the patient's discharge. The assessment will further clarify the severity of cognitive deficits and assist in the development of compensatory strategies. During his rehabilitation program, encouraging him to participate, through a focus on breathing strategies to relax when necessary and providing verbal praise and complements for the achievements that had been made during therapies. However, continued areas of deficit will need to be emphasized to improve his insight. Thank you very much for allowing me to provide the consultation on this patient. <ELECTRONICALLY SIGNED> By: Fab Javier, PhD 10/07/17 1447 [id number] Fab Javier, PhD /nt
[~2017-10-03 11:36] MED LIST changes: +AMBIEN 5 MG TABL5 M1 PO; +ASPIR 8181 MG PO; +CARVEDILOL6.25 MG PO; +DEMADEX 2020 MG/1 TA PO; +FLOMAX0.4 MG PO; +MAG6464 MG PO; +PREDNISONE 20 M20 M1 PO
[2017-10-03 15:45] VITALS: BP 113/54
[2017-10-03 20:00] VITALS: BP 120/52
[2017-10-04 04:08] LABS: CREATININE 2.2 mg/dL (0.7-1.3)
[2017-10-04 04:12] LABS: POTASSIUM 2.6 mmol/L (3.5-5.1)
[2017-10-04 04:32] LABS: HEMATOCRIT 54.4 % (42.0-52.0); MCH 32.4 pg (26.0-34.0); MCV 98.2 fL (80.0-100.0); RBC 5.54 mil/uL (4.50-6.00); RDW 15.8 % (10.5-14.5); WBC 13.8 thou/uL (4.0-11.0)
[2017-10-04 07:55] VITALS: BP 102/30
[2017-10-04 20:57] VITALS: BP 98/42
[2017-10-05 07:41] LABS: ALBUMIN 3.4 g/dL (3.4-5.0); BUN 83 mg/dL (7-18); CHLORIDE 91 mmol/L (98-107); CREATININE 2.1 mg/dL (0.7-1.3); GLUCOSE 92 mg/dL (74-106); PHOSPHORUS 4.4 mg/dL (2.5-4.9); SODIUM 140 mmol/L (136-145)
[2017-10-05 07:45] LABS: CO2 > 45 mmol/L (21-32); POTASSIUM 2.9 mmol/L (3.5-5.1)
[2017-10-05 20:24] VITALS: BP 100/46
[2017-10-06 06:29] LABS: ALBUMIN 3.3 g/dL (3.4-5.0); CALCIUM 10.4 mg/dL (8.5-10.1); CREATININE 1.7 mg/dL (0.7-1.3); PHOSPHORUS 4.1 mg/dL (2.5-4.9)
[2017-10-06 06:45] LABS: POTASSIUM 2.5 mmol/L (3.5-5.1)
[2017-10-06 07:15] VITALS: BP 101/41
[2017-10-06 13:00] LABS: CALCIUM 10.1 mg/dL (8.5-10.1); POTASSIUM 3.4 mmol/L (3.5-5.1)
[2017-10-06 17:44] VITALS: BP 106/48
[2017-10-06 19:54] VITALS: BP 87/33
[2017-10-07 05:57] VITALS: BP 99/43
[2017-10-07 08:00] VITALS: BP 102/45
[2017-10-07 12:14] LABS: CALCIUM 9.7 mg/dL (8.5-10.1); CREATININE 1.8 mg/dL (0.7-1.3); POTASSIUM 3.4 mmol/L (3.5-5.1)
[2017-10-07 19:40] VITALS: BP 111/51
[2017-10-08 08:00] VITALS: BP 99/44
[2017-10-08 13:01] LABS: ALBUMIN 3.1 g/dL (3.4-5.0); CALCIUM 9.3 mg/dL (8.5-10.1); CREATININE 1.7 mg/dL (0.7-1.3); POTASSIUM 3.8 mmol/L (3.5-5.1); TOTAL BILIRUBIN 1.7 mg/dL (<0.1-1.0); TOTAL PROTEIN 6.4 g/dL (6.4-8.2)
[2017-10-08 16:25] VITALS: BP 107/54
[2017-10-08 19:42] VITALS: BP 114/49
[2017-10-09 06:40] LABS: ALBUMIN 2.8 g/dL (3.4-5.0); CALCIUM 8.6 mg/dL (8.5-10.1); CREATININE 1.4 mg/dL (0.7-1.3); PHOSPHORUS 2.3 mg/dL (2.5-4.9); POTASSIUM 3.3 mmol/L (3.5-5.1)
[2017-10-09 07:30] VITALS: BP 102/41
[2017-10-09 08:21] VITALS: BP 98/48
[2017-10-09 11:53] VITALS: BP 118/53
[2017-10-09 13:00] VITALS: BP 113/57
[2017-10-09 16:55] VITALS: BP 114/45
[2017-10-09 20:06] VITALS: BP 107/40
[2017-10-10 08:20] VITALS: BP 95/51
[2017-10-10] MEDS ORDERED: CARVEDILOL3.125 MG PO (16:53)
[2017-10-10] MEDS ORDERED: DEMADEX20 MG PO (16:55)
[2017-10-10] MEDS ORDERED: PREDNISONE 20 M20 M1 PO (16:55)
[2017-10-10] MEDS ORDERED: NYSTATIN100000 UNI SWISH&SPIT (16:56)
[2017-10-10] MEDS ORDERED: K-DUR 20 MEQ T20 MEQ PO (16:56)
[2017-10-10 20:44] VITALS: BP 105/47
[2017-10-11 08:36] VITALS: BP 125/57
[2017-10-11 13:12] VITALS: BP 125/57
[2017-10-11 17:23] VITALS: BP 120/44
[2017-10-11 17:29] VITALS: BP 122/44
== END 2017-10-11 18:22 | disposition home or self-care (01) | DRG 91 ==
PROVIDERS: Family Medicine; Hospitalist; Physical Medicine & Rehabilitation
DX: G93.1 Anoxic brain damage, not elsewhere classified (principal); I50.43 Acute on chronic combined systolic (congestive) and diastolic (congestive) heart failure; J96.01 Acute respiratory failure with hypoxia; I42.9 Cardiomyopathy, unspecified; N17.9 Acute kidney failure, unspecified; E87.3 Alkalosis; I13.0 Hypertensive heart and chronic kidney disease with heart failure and stage 1 through stage 4 chronic kidney disease, or unspecified chronic kidney disease; E87.2 Acidosis; R53.81 Other malaise; R33.9 Retention of urine, unspecified; E11.51 Type 2 diabetes mellitus with diabetic peripheral angiopathy without gangrene; G47.33 Obstructive sleep apnea (adult) (pediatric); E66.09 Other obesity due to excess calories; Z68.34 Body mass index [BMI] 34.0-34.9, adult; R41.9 Unspecified symptoms and signs involving cognitive functions and awareness; I35.0 Nonrheumatic aortic (valve) stenosis; I34.0 Nonrheumatic mitral (valve) insufficiency; G47.00 Insomnia, unspecified; E87.6 Hypokalemia; N18.9 Chronic kidney disease, unspecified; K74.60 Unspecified cirrhosis of liver; E83.52 Hypercalcemia; K59.00 Constipation, unspecified; J44.9 Chronic obstructive pulmonary disease, unspecified; I08.0 Rheumatic disorders of both mitral and aortic valves; Z87.891 Personal history of nicotine dependence; Z88.0 Allergy status to penicillin; Z88.8 Allergy status to other drugs, medicaments and biological substances
CPT/HCPCS: 10112

== ENCOUNTER → 2019-08-01 | Outpatient (CLI) | payer OTHER, BC ==
[~2019-08-01] MED LIST changes: +CARVEDILOL3.125 MG PO; +COZAAR 25 MG TA25 M1 PO; +DEMADEX20 MG PO; +FISH OIL 1,0001 EAC9 PO; +K-DUR 20 MEQ T20 MEQ PO; +MAGNESIUM250 M1 PO; +METOPROLOL SUCC25 M1 PO; +NYSTATIN100000 UNI SWISH&SPIT
== END ==
LOC: CAT 14:25
DX: M47.812 Spondylosis without myelopathy or radiculopathy, cervical region (principal); M50.322 Other cervical disc degeneration at C5-C6 level

== ENCOUNTER 2019-08-02 16:24 | Inpatient (IN) | payer OTHER, BC ==
[~2019-08-02] VITALS: Ht 177.8 cm; Wt 101.6 kg
[~2019-08-02 16:24] MED LIST changes: -COZAAR 25 MG TA25 M1 PO; -FISH OIL 1,0001 EAC9 PO; -MAGNESIUM250 M1 PO; -METOPROLOL SUCC25 M1 PO
[2019-08-02 16:50] VITALS: BP 112/68
[2019-08-02 17:23] LABS: HEMATOCRIT 37.3 % (42.0-52.0); HEMOGLOBIN 12.6 gm/dL (14.0-18.0); MCH 28.9 pg (26.0-34.0); MCHC 33.8 g/dL (28.0-37.0); MCV 85.7 fL (80.0-100.0); RBC 4.35 mil/uL (4.50-6.00); RDW 15.9 % (10.5-14.5); WBC 6.3 thou/uL (4.0-11.0)
[2019-08-02 17:44] LABS: ALBUMIN 2.6 g/dL (3.4-5.0); CALCIUM 8.8 mg/dL (8.5-10.1); CREATININE 1.3 mg/dL (0.7-1.3); TOTAL BILIRUBIN 1.4 mg/dL (<0.1-1.0); TOTAL PROTEIN 6.6 g/dL (6.4-8.2)
[2019-08-02] MEDS ORDERED: FISH OIL 1,0001 EAC9 PO (17:45)
[2019-08-02] MEDS ORDERED: COZAAR 25 MG TA25 M1 PO (17:46)
[2019-08-02 17:47] LABS: POTASSIUM 2.8 mmol/L (3.5-5.1)
[2019-08-02] MEDS ORDERED: MAGNESIUM250 M1 PO (17:47)
[2019-08-02] MEDS ORDERED: METOPROLOL SUCC25 M1 PO (17:51)
[2019-08-02 19:31] VITALS: BP 97/60
--- NOTE | 2019-08-02 19:57 | NUR ---
Received pt from the office Dr. Navarro as a direct admit. Med req done, critical labs read to Dr. Navarro. Orders and medications updated as per MD. Pt is up at brigido, gait is steady and able to ambulate with a steady gait. Pt went down to have xray done, scheduled for MRI. Pt did complain of discomfort in the abdomen and would not describe it as pain. Medication given. Pt had requested for IV to be done later since no fluids were ordered. Endorsed to the night nurse. POC followed, no signs or verbalizations of distress have been noted, diet and medication is well tolerated. Endorsed to the night nurse.
[2019-08-02 21:06] LABS: URINE BILIRUBIN 1+ (Negative); URINE BLOOD NEGATIVE (Negative); URINE CLARITY CLEAR; URINE COLOR YELLOW; URINE GLUCOSE-RANDOM* NEGATIVE (Negative); URINE KETONES NEGATIVE (Negative); URINE LEUKOCYTES-REFLEX NEGATIVE (Negative); URINE NITRITE-REFLEX NEGATIVE (Negative); URINE PROTEIN (DIPSTICK) 2+ (Negative)
[2019-08-02 21:14] LABS: BACTERIA-REFLEX None Seen /HPF (None Seen); CASTS None Seen /LPF (None Seen); CRYSTALS None Seen /LPF (None Seen); ICTOTEST (BILI CONFIRMATORY) Positive (Negative); MUCUS 0-3 Light strn/LPF (None Seen); SQUAMOUS 0-3 Few /LPF (0-3); URINE RBC None Seen /HPF (0-2); URINE WBC-REFLEX None Seen /HPF (0-5)
--- NOTE | 2019-08-03 05:38 | NUR ---
Pt. rested quietly at intervals during the night when checked on during frequent rounds. He did c/o nausea and Dr. Navarro called and new order received for ivp zofran (see cpoe). Zofran given (see emar) with some relief noted. Pt. has had intermittent periods of the hiccups. No c/o pain. Up to the bathroom with standby assistance.
[2019-08-03 06:58] LABS: CALCIUM 8.5 mg/dL (8.5-10.1); CREATININE 1.4 mg/dL (0.7-1.3); POTASSIUM 3.4 mmol/L (3.5-5.1)
[2019-08-03 07:04] LABS: ALBUMIN 2.4 g/dL (3.4-5.0); DIRECT BILIRUBIN 0.5 mg/dL (<0.1-0.2); TOTAL BILIRUBIN 1.1 mg/dL (<0.1-1.0); TOTAL PROTEIN 6.1 g/dL (6.4-8.2)
[2019-08-03 09:15] VITALS: BP 119/72
[2019-08-03 15:00] VITALS: BP 103/68
[2019-08-03 15:30] VITALS: BP 122/83
--- NOTE | 2019-08-03 19:57 | NUR ---
Assumed pt care this am, pt mentioned of the discomfort in his abdomen and the hiccups that have not stopped. VS stable, informed Dr. Navarro that zofran did not resolve this issue even with 2 doses. Family was at the bedside, lorazepam given symptoms resolved for a short period of time.FAmily had left for a while since pt was asleep, pt then used the urinal and went back to bed. At 4:30 pt called out for help since he was trying to use the urinal and felt he was going to fall thus he decided to sit on the floor. No pain was noted as per the pt, informed house sup, family and MD. Orders given and carried out updated medlist. MRI could not be done today d/t clearance from the door to door lead generation is needed and tech to put device (defibrilator) on safe mode, MD informed. FAll precautions in place. No additional diagnostics ordered in relation to the fall since pt stated there is no pain as instruted by MD. POC followed, endorsed to the night nurse.
[2019-08-03 20:20] VITALS: BP 104/63
[2019-08-04 04:24] VITALS: BP 112/54
[2019-08-04 05:40] LABS: ALBUMIN 2.3 g/dL (3.4-5.0); CALCIUM 8.3 mg/dL (8.5-10.1); CREATININE 1.2 mg/dL (0.7-1.3); POTASSIUM 3.6 mmol/L (3.5-5.1); TOTAL BILIRUBIN 1.2 mg/dL (<0.1-1.0); TOTAL PROTEIN 5.7 g/dL (6.4-8.2)
[2019-08-04 07:43] VITALS: BP 140/62
--- NOTE | 2019-08-04 07:48 | NUR ---
progress pt lethargic and mildly confused at start of shift a little off balance from ativan but got stronger and more alert as shift went by ivf's infusing as ordered pt drinking adequate amounts pt was incontinent of urine approximately 8 times aware of incontinence but unable to hold it. continue bed alarms high fall risk.
--- NOTE | 2019-08-04 12:08 | HC ---
[facility] [place] [address] CONSULTATION Name: VISHNU HOWARD Room #: 460-P ADM IN M.R.#: [id number] Admission: 08/02/19 Attend Phys: Fab Navarro MD Discharge: Date of : 46 Report #: [id number] THIS REPORT FOR: //name// CC: Fab Navarro DATE OF SERVICE: 08/03/2019 GI CONSULT HISTORY OF PRESENT ILLNESS: The patient is a very pleasant 68-year-old male who I have been asked to see for further evaluation of intractable hiccups and gastroesophageal reflux. He had a recent upper endoscopy by my partner, ____ without evidence of significant pathology. He has been treated for reflux. He has had some recent upper and lower neurologic signs with weakness in both his arms and his legs. He did have severe degenerative joint changes in the C-spine by CT scan of the C-spine. He has been unable to tolerate Thorazine for intractable hiccups. Of note, he is not having hiccups currently. He did present with severe hypokalemia, which may have contributed. ALLERGIES: He is allergic to PENICILLIN AND AMBIEN. FAMILY HISTORY: Noncontributory. SOCIAL HISTORY: Negative for alcohol abuse. PAST MEDICAL HISTORY: Notable for heart failure, aneurysm, aortic stenosis, cardiomyopathy, diabetes, encephalopathy, pneumonia, respiratory failure, mitral insufficiency, urinary retention. MEDICATIONS: Flomax, aspirin, magnesium chloride, Coreg, Demadex, prednisone, nystatin, potassium. OTHER MEDICAL HISTORY: Includes hydrocele, bilateral cataracts, sleep apnea, tobacco use for 40 years. REVIEW OF SYSTEMS: Negative for weight loss, weakness or fatigue. He denies head, eyes, ears, nose or throat complaints. He denies chest pain, chest palpitation, chest pressure, cough, shortness of breath, wheezing, genitourinary, musculoskeletal or neuropsychiatric complaints beyond that mentioned above. PHYSICAL EXAMINATION: VITAL SIGNS: The patient is afebrile. Vital signs are stable. HEENT: Nonicteric. NECK: No JVD, thyromegaly or bruits. [facility] [address] [place] [address] CONSULTATION Name: VISHNU HOWARD Andria Room #: 460-P [facility] IN ..#: [id number] Admission: 08/02/19 Attend Phys: Fab Navarro MD Discharge: Date of : 48 Report #: [id number] CARDIOVASCULAR: Regular. LUNGS: Clear. ABDOMEN: Soft, nondistended, nontender, normoactive bowel sounds. No hepatosplenomegaly. No stigmata of chronic liver disease. No abnormal masses or bruits. EXTREMITIES: Not examined. NEUROLOGIC: Not performed. RECTAL: Deferred. PERTINENT LABORATORY DATA: Include hemoglobin 12.6, MCV 85.7, RDW of 15.9, platelet count of 128, white count 6.3. Chemistry is notable for potassium 2.8, which is up to 3.4, total bilirubin 1.1 with direct bilirubin of 0.5, which is consistent with Gilbert's syndrome. AST 55, ALT 29, alkaline phosphatase 252, total protein 6.6, albumin 2.6. IMAGING STUDIES: Reveal abdominal ultrasound with gallstones, contracted gallbladder, no probe tenderness. Abdomen CT 5 years ago revealed no diaphragmatic or pulmonary process. ASSESSMENT: In summary, the patient is being treated for reflux currently and I would recommend continuing PPI therapy. If his hiccups return and they seem to have resolved with correction of his fluid and electrolyte abnormalities, then I would consider a CT of the chest to exclude an acute diaphragmatic process, which is unlikely. He has had an adverse reaction to THORAZINE, so this would not be recommended. We will follow concurrently. I appreciate the opportunity to participate in his care. <ELECTRONICALLY SIGNED> By: Guille Hernandez MD 08/04/19 1208 1218 1609 Guille Hernandez MD /nt
[2019-08-04 19:15] VITALS: BP 86/57
--- NOTE | 2019-08-04 19:51 | NUR ---
Assumed pt care this am, fall precautions in place. VS stable , pt stayed on the recliner for most of the day. Pt would have episoded of incontinence but would call appropriately, family was at bed side. hiccups are intermittent still through out the day though have decreased, bt would still bother him. Informed Dr. Navarro, GI cocktail given before shift change. Fall precautions in place, Family requesting to have Dr. Bear as GI for consult, POC followed, not signs or verbalizations of distress have been noted.
[2019-08-05 00:02] VITALS: BP 125/87
--- NOTE | 2019-08-05 07:26 | NUR ---
PROGRESS PT A/O X4 FORGETFUL AT TIMES. iNCONTINENT FREQUENTLY, [place] CATHETER PLACED D/T SLIGHT SKIN IRRITATION NOTED TO RIGHT GROIN FOLD. PT C/O SOB THIS AM AND HAS PEDAL EDEMA. INTO SEE PT DC'D FLUID TO ORDER MORE IMAGING OF ABDOMEN AND SPINE HICCUPS HAVE RETURNED AND ARE NORE PRONOUNCED THAN THE PREVIOUS SHIFT. CONTINUE TO MONITOR.
[2019-08-05 08:00] VITALS: BP 96/67
[2019-08-05 10:10] LABS: CALCIUM 8.8 mg/dL (8.5-10.1); CREATININE 1.2 mg/dL (0.7-1.3); POTASSIUM 4.5 mmol/L (3.5-5.1)
[2019-08-05 13:47] LABS: % SATURATION 19 % (20-39); IRON 33 ug/dL (65-175); TIBC 176 ug/dL (250-450)
--- NOTE | 2019-08-05 14:03 | NUR ---
INITIAL ASSESSMENT: Pt evaluated for d/c planning needs. Reviewed chart and spoke with nurse and pt. Pt is alert and oriented. Pt lives in house with spouse. Pt was independent with ADL's and has CPAP and nebulizer at home. Pt states he uses no walker or cane. Pt has not had home health in the past. Pt plans on returning home on d/c from hospital. WIll remain available to assist as needed.
[2019-08-05 15:00] VITALS: BP 99/58
[2019-08-05 19:07] LABS: IgG 811 mg/dL (700-1600)
[2019-08-05 19:14] VITALS: BP 90/61
--- NOTE | 2019-08-06 03:24 | NUR ---
PT IS A/O X4.PT IS FORGETFULLY.FALL PRECAUTION IN PLACE.PT USES URINAL.IV ACCESS ON LH SL.PT IS ACCUCHECKS ACHS .PT NPO MIDNIGHT FOR HEPATOBILIARY SCAN TODAY AM.PT DENIED PAIN ,NAUSEA AND VOMITING.WILL CONTINUE TO MONITOR PER POC
[2019-08-06 06:02] LABS: HEMATOCRIT 35.9 % (42.0-52.0); MCH 28.8 pg (26.0-34.0); MCHC 33.3 g/dL (28.0-37.0); MCV 86.4 fL (80.0-100.0); RBC 4.15 mil/uL (4.50-6.00); RDW 16.3 % (10.5-14.5); WBC 4.5 thou/uL (4.0-11.0)
[2019-08-06 06:10] LABS: INR 1.1; PROTIME 11.5 Seconds (9.3-11.4)
[2019-08-06 06:14] LABS: ALBUMIN 2.4 g/dL (3.4-5.0); CALCIUM 8.3 mg/dL (8.5-10.1); CREATININE 1.3 mg/dL (0.7-1.3); POTASSIUM 4.4 mmol/L (3.5-5.1); TOTAL BILIRUBIN 1.1 mg/dL (<0.1-1.0)
[2019-08-06 07:10] VITALS: BP 99/64
[2019-08-06 09:07] LABS: HAV IgM AB (ANTI-HAV IgM) Negative (Negative); HEPATITIS B SURFACE AG Negative (Negative); HEPATITIS C VIRUS AB <0.1 (0.0-0.9)
--- NOTE | 2019-08-06 10:15 | NUR ---
SW reviewed chart and spoke with nursing and attending physician. Surgery consulted today. Pt to have PIPIDA scan and MRI of spine today. Pt with BLE weakness. Pt will need therapy to evaluate pt for recommendation for discharge needs. RENEA is following to assist as needed with discharge planning.
[2019-08-06 14:34] VITALS: BP 114/67
[2019-08-06 15:08] LABS: CERULOPLASMIN 44.7 mg/dL (16.0-31.0)
[2019-08-06 19:19] VITALS: BP 100/60
--- NOTE | 2019-08-06 20:09 | NUR ---
Assumed pt care this am, was taken down for the hepatobilioary scan. Started on 2 gran Na diet and is well tolerated, though pt did not want ot to have his dinner and preferred a boxed sandwich. PT and OT consulted, though pt did not work with them since he felt so sleepy due to the baclofen. Hiccups are less compared to previous days and pt claims that this is the fist time in months taht something has worked and is able to go to sleep. MRI still pendiing cardio clearance, as per MRI this may happen on day given that they need to call the tech to place defib (implated) on safe mode, awaiting clearance, and MRI will be closed tomorrow for maintenance. ECG done before shift change. Pt is to have an EGD tomorrow, consent signed by DPOA () pt is to be on NPO midnight onwards. Pt exhibited confusion in late in the afternoon, witnessed by his son. POC followed, no signs or verbalizations of distress have been noted. endorsed to the night nurse.
[2019-08-06 20:51] LABS: BASOPHILS 1.1 % (0.0-2.0); EOSINOPHILS 0.9 % (0.0-3.0); HEMATOCRIT 35.6 % (42.0-52.0); HEMOGLOBIN 11.9 gm/dL (14.0-18.0); LYMPHOCYTES 16.5 % (24.0-44.0); MCH 29.1 pg (26.0-34.0); MCHC 33.5 g/dL (28.0-37.0); MCV 86.9 fL (80.0-100.0); MONOCYTES 7.1 % (1.0-8.0); PLATELET COUNT 96 thou/uL (150-400); POLYS 74.4 % (36.0-66.0); RDW 16.1 % (10.5-14.5); WBC 4.1 thou/uL (4.0-11.0)
[2019-08-06 21:23] LABS: CALCIUM 8.8 mg/dL (8.5-10.1); CREATININE 1.6 mg/dL (0.7-1.3); POTASSIUM 4.7 mmol/L (3.5-5.1)
--- NOTE | 2019-08-07 01:42 | NUR ---
PT CARE ASSUMED AT 1900 WITH PT IN BED.PT IS A/O X3.PT IS FORGETFUL AND SOMETIMES CONFUSE.PT HAS A HEART RATE OF [address] AGUIRRE CALLED.DR AGUIRRE ORDERED EKG.RESULT OF EKG DONE 1HR PRIOR WAS REPORT TO HIM AND HE ORDERED METOPROLOL 25MG ONETIME FOR HR >140.PT IS NPO FROM MIDNIGHT FOR EGD.PT IS INCONTINENT WILL CONTINUE TO MONITOR PER POC
[2019-08-07 04:10] LABS: ANA INTERPRETATION Negative (Negative)
[2019-08-07 05:51] LABS: CALCIUM 8.6 mg/dL (8.5-10.1); CREATININE 1.3 mg/dL (0.7-1.3); POTASSIUM 4.4 mmol/L (3.5-5.1)
[2019-08-07 07:11] VITALS: BP 102/68
[2019-08-07 13:08] LABS: MITOCHONDRIAL ANTIBODY <20.0 Units (0.0-20.0)
[2019-08-07 14:10] LABS: SMOOTH MUSCLE ANTIBODY 9 Units (0-19)
[2019-08-07 14:48] VITALS: BP 122/76
--- NOTE | 2019-08-07 16:02 | 2DMMODE ---
[facility] [place] [address] 2 D/M-MODE ECHOCARDIOGRAM Name: VISHNU HOWARD Room #: 460-P [facility] IN .R.#: [id number] Admission: 08/02/19 Attend Phys: Fab Navarro, Discharge: Date of : 48 Report #: [id number] THIS REPORT FOR: //name// APPROVED REPORT Study performed: 08/07/2019 09:04:26 EXAM: Comprehensive 2D, Doppler, and color-flow Echocardiogram Patient Location: Echo lab Room #: [facility] Status: routine BSA: 2.17 HR: 104 bpm BP: 108/68 mmHg Rhythm: Pacemaker Other Information Study Quality: Good Indications ICD: Congestive Heart Failure Diabetes Cardiomyopathy AVR 2D Dimensions RVDd: 39.64 mm IVSd: 12.21 (7-11mm) LVOT Diam: 25.07 (18-24mm) LVDd: 67.29 mm PWd: 12.27 (7-11mm) Ascending Ao: 39.80 (22-36mm) LVDs: 57.65 (25-40mm) Aortic Root: 38.24 mm IVC: 18.00 mm Volumes Left Atrial Volume (Systole) Single Plane 4CH: 81.88 mL Single Plane 2CH: 67.21 mL LA ESV Index: 37.00 mL/m2 Aortic Valve AoV Peak Miller.: 2.01 m/s AO Peak Gr.: 16.17 mmHg LVOT Max P.79 mmHg LVOT Max V: 0.97 m/s REMI Vmax: 2.39 cm2 [facility] [address] [address] 2 D/M-MODE ECHOCARDIOGRAM Name: VISHNU HOWARD Room #: 460-P [facility]#: [id number] Admission: 08/02/19 Attend Phys: Fab Navarro, Discharge: Date of : 48 Report #: [id number] Pulmonary Valve PV Peak Miller.: 0.75 m/s PV Peak Gr.: 2.26 mmHg Tricuspid Valve TR Peak Miller.: 2.49 m/s TR Peak Gr.: 24.77 mmHg PA Pressure: 30.00 mmHg Left Ventricle Left ventricle is dilated. There is global hypokinesis of the left ventricle. Hypertensive heart disease. Left ventricular ejection fraction is severely decreased. LVEF is 30%. This study is not technically sufficient to allow evaluation of the LV diastolic function. Right Ventricle The right ventricle is normal size. The right ventricular systolic function is normal. Atria The left atrium size is normal. The right atrium size is normal. Aortic Valve Bioprosthetic aortic valve is present. No aortic regurgitation is present. There is no aortic valvular stenosis. Mitral Valve The mitral valve is normal in structure. Mild mitral regurgitation. No evidence of mitral valve stenosis. Tricuspid Valve The tricuspid valve is normal in structure. There is mild tricuspid regurgitation. Estimated PAP 30 mmHg. There is mild pulmonary hypertension. Pulmonic Valve The pulmonary valve is normal in structure. There is no pulmonic valvular regurgitation. Great Vessels The aortic root is normal in size. IVC is normal in size and collapses >50% with inspiration. Pericardium There is no pericardial effusion. [facility] [address] [place] [address] 2 D/M-MODE ECHOCARDIOGRAM Name: VISHNU HOWARD Room #: 460-P [facility] IN [facility].#: [id number] Admission: 08/02/19 Attend Phys: Fab Navarro, Discharge: Date of : 48 Report #: [id number] <Conclusion> Left ventricular ejection fraction is severely decreased. There is global hypokinesis of the left ventricle. LVEF is 30%. Bioprosthetic aortic valve is present. No aortic regurgitation or stenosis The mitral valve is normal in structure. Mild mitral regurgitation. There is mild tricuspid regurgitation. Estimated pulmonary artery pressure of 30 mmHg. There is no pericardial effusion. <ELECTRONICALLY SIGNED> By: Jarret Izquierdo MD, [facility] 08/07/191600 00 160 Jarret Izquierdo MD, FACC /INF
--- NOTE | 2019-08-07 18:54 | NUR ---
Assumed pt care this am, pt was NPO and went down for the EGD that did not push through, informed Dr. Navarro. REquest for records in [facility] done and faxed. Scheduled for MRI tomorrow as per radiology. Pt was very lethargic and sleepy and not able to work with PT today. DC's baclofen as per Dr. Navarro. Pt wa smore alert during dinner time, pt took a bath was at the bed side. No hiccups were noted this shift. POC followed, no signs or verbalizations of distress. VS stable. endorsed to the [facility] nurse, reminded of daily wt anf i & o.
[2019-08-07 19:05] VITALS: BP 116/96
[2019-08-08 04:00] VITALS: BP 94/57
--- NOTE | 2019-08-08 04:19 | NUR ---
ASSUMED CARE AROUND 191. IN THE BEGINNING OF THE SHIFT, PT WAS VERY DROWSY AND DIFFICULT TO AROUSE. LATER DURING THE SHIFT, PT BECAME MORE ALERT AND IMPULSIVE TO GET UP, WHICH IS PT'S BASELINE. OPENDS EYES SPONTANEOUSLY AND CARRIES CONVERSATIONS. LOW BP NOTED IN AM AND PER PT, IT'S NOT A CONCERN FOR PT THAT HE HAS LOW BP NORMALLY. NO S/S ACUTE DISTRESS NOTED OR REPORTED AT THIS TIME. WILL CONT TO MONITOR FOR ANY CHANGES IN CONDITION.
[2019-08-08 07:08] VITALS: BP 96/61
--- NOTE | 2019-08-08 08:16 | EKG ---
[place] [address] [facility] [place] [address] ELECTROCARDIOGRAM REPORT Name: VISHNU HOWARD Room #: 460- ADM IN M.R.#: [id number] Admission: 08/02/19 Attend Phys: Fab Navarro MD Discharge: Date of : 48 Report #: [id number] THIS REPORT FOR: //name// [facility] Test Date: 2019-08-06 Test Time: 18:20:29 Pat Name: VISHNU HOWARD Department: Room: 460 Gender: M Parts Puller: Rosario YOUSSEF : 1950 Requested By: Elvira Zuniga Order Number: [id number] MD: Jarret Izquierdo Measurements Intervals [place] Rate: 128 P: 44 WY: 137 QRS: -71 QRSD: 103 T: 85 QT: 300 QTc: 438 Interpretive Statements Sinus tachycardia Ventricular premature complex Inferior infarct, old Baseline wander in lead(s) V1 Compared to ECG 09/26/2017 01:19:01 Ventricular premature complex(es) now present Sinus bradycardia no longer present Electronically Signed On 08-08-2019 8:15:28 SHIFT STACKER by Jarret Izquierdo [email or web address] <ELECTRONICALLY SIGNED> By: Jarret Izquierdo MD, [facility] 08/08/19 0815 1820 1820 Jarret Izquierdo MD, [facility] /EPI
--- NOTE | 2019-08-08 08:27 | EKG ---
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: SRIRAM : 1950 Requested By: Carley Wellington Order Number: [id number] MD: Jarret Izquierdo Measurements Intervals [place] Rate: 113 P: 35 [place]: 139 QRS: -67 QRSD: 109 T: 97 QT: 339 QTc: 465 Interpretive Statements Sinus tachycardia with occasional premature ventricular complexes Abnormal R-wave progression, early transition Inferior infarct, old Poor R wave progression Compared to ECG 09/26/2017 01:19:01 Premature ventricular complex is now present Electronically Signed On 08-08-2019 8:26:35 ENGINE DESIGNER by Jarret Izquierdo [email or web address] <ELECTRONICALLY SIGNED> By: Jarret Izquierdo MD, [facility] 08/08/19 0826 1035 1035 Jarret Izquierdo MD, [facility] /EPI
[2019-08-08] MEDS ORDERED: PANTOPRAZOLE SO40 M1 PO (12:16)
[2019-08-08 12:49] VITALS: BP 96/61
[2019-08-08 13:40] VITALS: BP 96/61
--- NOTE | 2019-08-08 13:41 | NUR ---
CARE TEAM INDICATED THAT PT IS MEDICALLY STABLE TO DC HOME THIS DAY. PT HAS ALL RECOMMENDED DME. PHYSYCIAN ORDERED HH SERVICES, PT, OT, NURSING. CM SPOKE WITH PT AND SON AND THEY INDICATED NO PREFERENCE FOR PROVIDER. REFERRAL SENT TO [facility] . NO OTHER CM INTERVENTION INDICATED. CASE CLOSED.
--- NOTE | 2019-08-08 13:58 | NUR ---
DISCHARGE ORDERS COMPLETED PATIENT DISCHARGING TO HOME WITH HOME HEALTH SERVICES. PATIENT REFERRAL AND DISCHARGE HOME HEALTH ORDERS FAXED TO [facility] PER REQUEST. CALL PLACED TO [facility] TO VERIFY RECEIVED. SPOKE WITH JYOTHI. ALL CLINICALS AND ORDERS RECEIVED. JYOTHI TO FACILIATE PATIENTS HH NEEDS. UNIT SW AWARE.
--- NOTE | 2019-08-08 16:07 | NUR ---
Assumed pt care this am, VS stable, pt was taken down for MRI this was completed. Pt is more alert today, dient and medications are well tolerated. POC followed, no signs or verbalizations of distress have been noted. IV removed, Dc instructions and prescriptions given to the pt and son. IV removed, pt sent home with belongings and cipap.
== END 2019-08-08 15:30 | disposition home health service (06) | DRG 551 ==
LOC: 4W 16:24
PROVIDERS: Nurse Practitioner; Nurse Practitioner Adult Health; ADMIT Family Medicine
PROC: 5A09357 Assistance with Respiratory Ventilation, Less than 24 Consecutive Hours, Continuous Positive Airway Pressure (ICD-10-PCS; principal; 2019-08-02)
PROC: 5A09357 Assistance with Respiratory Ventilation, Less than 24 Consecutive Hours, Continuous Positive Airway Pressure (ICD-10-PCS; 2019-08-03)
PROC: 5A09357 Assistance with Respiratory Ventilation, Less than 24 Consecutive Hours, Continuous Positive Airway Pressure (ICD-10-PCS; 2019-08-04)
PROC: 5A09357 Assistance with Respiratory Ventilation, Less than 24 Consecutive Hours, Continuous Positive Airway Pressure (ICD-10-PCS; 2019-08-05)
PROC: 5A09457 Assistance with Respiratory Ventilation, 24-96 Consecutive Hours, Continuous Positive Airway Pressure (ICD-10-PCS; 2019-08-06)
DX: M48.02 Spinal stenosis, cervical region (principal); E43 Unspecified severe protein-calorie malnutrition; I42.9 Cardiomyopathy, unspecified; I50.22 Chronic systolic (congestive) heart failure; E87.1 Hypo-osmolality and hyponatremia; E87.6 Hypokalemia; R06.6 Hiccough; E86.0 Dehydration; K21.9 Gastro-esophageal reflux disease without esophagitis; M50.30 Other cervical disc degeneration, unspecified cervical region; R74.8 Abnormal levels of other serum enzymes; K74.60 Unspecified cirrhosis of liver; E11.51 Type 2 diabetes mellitus with diabetic peripheral angiopathy without gangrene; G47.33 Obstructive sleep apnea (adult) (pediatric); K80.20 Calculus of gallbladder without cholecystitis without obstruction; R74.0 Nonspecific elevation of levels of transaminase and lactic acid dehydrogenase [LDH]; M47.896 Other spondylosis, lumbar region; Z68.32 Body mass index [BMI] 32.0-32.9, adult; Z95.810 Presence of automatic (implantable) cardiac defibrillator; Z88.0 Allergy status to penicillin; Z88.8 Allergy status to other drugs, medicaments and biological substances; Z79.82 Long term (current) use of aspirin; Z79.899 Other long term (current) drug therapy; Z98.42 Cataract extraction status, left eye; Z90.89 Acquired absence of other organs; Z98.41 Cataract extraction status, right eye; Z95.820 Peripheral vascular angioplasty status with implants and grafts; Z87.891 Personal history of nicotine dependence; Z80.1 Family history of malignant neoplasm of trachea, bronchus and lung; Z95.4 Presence of other heart-valve replacement
CPT/HCPCS: 10047

== ENCOUNTER 2019-08-10 12:54 | Inpatient (IN) | payer OTHER, BC ==
[~2019-08-10] VITALS: Ht 152.4 cm; Wt 98.5 kg
[~2019-08-10 12:54] MED LIST changes: +COZAAR 25 MG TA25 M1 PO; +FISH OIL 1,0001 EAC9 PO; +MAGNESIUM250 M1 PO; +METOPROLOL SUCC25 M1 PO; +PANTOPRAZOLE SO40 M1 PO
[2019-08-10 12:55] VITALS: BP 95/67
[2019-08-10 13:25] LABS: ABSOLUTE NEUTROPHILS 4.1 thou/uL (1.4-8.2); EOSINOPHILS 0.9 % (0.0-3.0); HEMATOCRIT 40.3 % (42.0-52.0); HEMOGLOBIN 13.6 gm/dL (14.0-18.0); LYMPHOCYTES 11.3 % (24.0-44.0); MCHC 33.8 g/dL (28.0-37.0); MCV 85.9 fL (80.0-100.0); MONOCYTES 6.6 % (1.0-8.0); PLATELET COUNT 113 thou/uL (150-400); POLYS 80.2 % (36.0-66.0); RBC 4.69 mil/uL (4.50-6.00); RDW 16.1 % (10.5-14.5); WBC 5.1 thou/uL (4.0-11.0)
[2019-08-10 13:31] LABS: URINE BILIRUBIN NEGATIVE (Negative); URINE BLOOD TRACE (Negative); URINE CLARITY CLEAR; URINE COLOR YELLOW; URINE GLUCOSE-RANDOM* NEGATIVE (Negative); URINE KETONES NEGATIVE (Negative); URINE LEUKOCYTES-REFLEX NEGATIVE (Negative); URINE NITRITE-REFLEX NEGATIVE (Negative); URINE PROTEIN (DIPSTICK) NEGATIVE (Negative); URINE UROBILINOGEN 0.2 E.U./dl (0.2-1.0)
[2019-08-10 13:34] LABS: ANION GAP 12 mmol/L (7-16); BUN 19 mg/dL (7-18); CALCIUM 8.6 mg/dL (8.5-10.1); CHLORIDE 96 mmol/L (98-107); CO2 22 mmol/L (21-32); CREATININE 1.6 mg/dL (0.7-1.3); GLUCOSE 124 mg/dL (74-106); POTASSIUM 3.6 mmol/L (3.5-5.1); SODIUM 130 mmol/L (136-145)
[2019-08-10 13:44] LABS: ALBUMIN 2.8 g/dL (3.4-5.0); LIPASE 412 U/L (73-393); SGOT 69 U/L (15-37); SGPT 38 U/L (30-65); TOTAL BILIRUBIN 1.3 mg/dL (<0.1-1.0); TOTAL PROTEIN 6.9 g/dL (6.4-8.2); TROPONIN-I <0.06 ng/mL (<0.06)
[2019-08-10] MEDS ORDERED: OMEPRAZOLE 20 M20 M1 PO (13:49)
[2019-08-10] MEDS ORDERED: POTASSIUM20 PO (13:51)
[2019-08-10] MEDS ORDERED: DEMADEX20 MG PO (13:51)
[2019-08-10] MEDS ORDERED: MULTIPLE VITAM1 EAC2 PO (13:51)
[2019-08-10 16:33] VITALS: BP 89/61
--- NOTE | 2019-08-10 18:25 | NUR ---
PATIENT ADMITTED TO ROOM AT THIS TIME. HE IS ALERT ORIENTED X4. DOES NOT SEEM TO BE IN PAIN. RESPIRATIONS ARE EVEN NON LABORED. STATES HE FELL AT HOME. BP HAS STABILIZED AT THIS TIME. WILL CONT WITH PLAN OF CARE.
[2019-08-10 19:35] VITALS: BP 133/52
[2019-08-11 00:10] VITALS: BP 121/60
[2019-08-11 04:10] VITALS: BP 126/59
--- NOTE | 2019-08-11 05:09 | NUR ---
PATIENT IS ALERT AND ORIENTED. PATIENT IS UP TIMES ONE. PATIENT IS ON ROOM AIR. PATIENT DENIES PAIN. PATIENT IS OCCATIONAL INCONTIENT. PATIENT VOIDS PER URINAL. PATIENT IS RESTING COMFORTABLY IN BED. BP IS UNDER CONTROLL HELD BP MEDS PER PATIENT REQUEST. WCM. PATIENT IS PROGRESSING TO GOALS.
[2019-08-11 05:41] LABS: HEMATOCRIT 35.5 % (42.0-52.0); HEMOGLOBIN 11.7 gm/dL (14.0-18.0); MCH 28.2 pg (26.0-34.0); MCHC 32.9 g/dL (28.0-37.0); MCV 85.8 fL (80.0-100.0); RBC 4.14 mil/uL (4.50-6.00); RDW 16.4 % (10.5-14.5); WBC 4.1 thou/uL (4.0-11.0)
[2019-08-11 05:59] LABS: ALBUMIN 2.4 g/dL (3.4-5.0); CALCIUM 7.8 mg/dL (8.5-10.1); CREATININE 1.4 mg/dL (0.7-1.3); POTASSIUM 3.2 mmol/L (3.5-5.1); TOTAL PROTEIN 5.7 g/dL (6.4-8.2)
[2019-08-11 07:21] VITALS: BP 111/73
--- NOTE | 2019-08-11 10:22 | EKG ---
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: [facility] : 1950 Requested By: Karri Morales Order Number: [id number] MD: Hunter Hooks Measurements Intervals [place] Rate: 124 P: 25 MS: 151 QRS: -71 QRSD: 109 T: 94 QT: 322 QTc: 463 Interpretive Statements Sinus tachycardia Multiple ventricular premature complexes Right ventricular conduction delay Inferior infarct, old Compared to ECG 08/07/2019 10:35:38 No significant change Electronically Signed On 08-11-2019 10:21:15 EARTHMOVING LABOURER by Hunter Hooks [email or web address] <ELECTRONICALLY SIGNED> By: Hunter Hooks MD 08/11/19 1021 1300 1300 Hunter Hooks MD /LYNETTE
[2019-08-11 11:13] VITALS: BP 105/70
[2019-08-11 15:16] VITALS: BP 108/67
--- NOTE | 2019-08-11 17:17 | NUR ---
ASSUMED CARE OF PT AT 0700. PT AOX4 IN NO ACUTE DISTRESS. VOICING NO COMPLAINTS/CONCERNS. FEVER OF 102.6 THIS AFTERNOON - IMPROVED WITH TYLENOL. USING URINAL. CALLS OUT APPROPRIATELY. IV ABX INFUSING PER ORDER. URINE CULTURES PENDING. WILL CONT TO MONITOR.
[2019-08-11 19:10] VITALS: BP 111/56
[2019-08-12 03:36] VITALS: BP 104/67
--- NOTE | 2019-08-12 04:30 | NUR ---
BED ALARM SET, CALLS FOR ASSIST. CONTINUES ON IV FLUIDS. RESTING QUIETLY. T MAX TONIGHT WAS 100.0 ORAL (F).
[2019-08-12 06:40] LABS: HEMATOCRIT 33.9 % (42.0-52.0); HEMOGLOBIN 11.5 gm/dL (14.0-18.0); MCHC 33.9 g/dL (28.0-37.0); MCV 85.4 fL (80.0-100.0); RBC 3.97 mil/uL (4.50-6.00); RDW 16.3 % (10.5-14.5); WBC 3.5 thou/uL (4.0-11.0)
[2019-08-12 07:28] VITALS: BP 101/63
[2019-08-12 07:36] LABS: ALBUMIN 2.3 g/dL (3.4-5.0); CALCIUM 7.9 mg/dL (8.5-10.1); CREATININE 1.3 mg/dL (0.7-1.3); POTASSIUM 3.1 mmol/L (3.5-5.1); TOTAL PROTEIN 5.7 g/dL (6.4-8.2)
--- NOTE | 2019-08-12 13:41 | NUR ---
INITIAL ASSESSMENT: Received high risk nursing referral. SW reviewed chart and spoke with nursing. Pt was admitted from home due to sepsis/fever/hypotension. Pt did have a fall at home prior to admission. Pt was recently discharged home on 08/08 with Ez . PT/OT ordered to evaluate pt. Pt is on IV abx. SW met with pt at bedside. Introduced role of SW. Pt is alert/orientated x 4. Pt reports he lives at home with his . Prior to admission, pt was independent with ADLs. Pt has home cpap machine and nebulizer. Pt's PCP is Dr. Navarro. Pt states that he is agreeable with HH at time of discharge if needed, but would like to use a different HH provider. SW is following to assist as needed with discharge planning.
[2019-08-12 16:47] VITALS: BP 107/51
[2019-08-12 19:25] VITALS: BP 109/69
--- NOTE | 2019-08-12 21:13 | NUR ---
RECEIVED PT'S CARE AROUND 0740; PT. ON CHAIR; AOX4; NO C/O PAIN; AM MEDICATION GIVEN; EDUCATED ABOUT FALL PRECAUTIONS; ST. UNDERSTANDING; ST ON THE MONITOR; SBP 100-90s; D/C ORDERS FOR NS; D/C FLUIDS; PER LAB PT. SPECIMEN FOR INFLUENZA NOT RECEIVED; CULTURE COLLECTED; ELEVATED TEMPERATURE DURING THE EVENING; EDUCATED ABOUT MAINTING ROOM COOL; ST. UNDERSTANDING; ASSESSMENT CHARGED; FOLLOWING POC; PASSED ON REPORT;
--- NOTE | 2019-08-13 03:50 | NUR ---
FOLLOWING POC WITH IVPB ANTIBIOTICS. URINE CULTURE CAME BACK NEGATIVE AND BLOOD CULTURES ARE SHOWING NO GROWTH. LOST IV SITE ON RIGHT FOREARM AND ESTABLISHED 2 IV NEW SITES. PT COMPLAINS OF URINATING TOO MUCH OVER THE EVENING. HOURLY ROUNDING.
[2019-08-13 04:10] VITALS: BP 102/62
[2019-08-13 08:06] VITALS: BP 101/65
[2019-08-13 10:56] LABS: CALCIUM 8.2 mg/dL (8.5-10.1); CREATININE 1.4 mg/dL (0.7-1.3); POTASSIUM 3.6 mmol/L (3.5-5.1)
[2019-08-13 12:10] VITALS: BP 102/65
--- NOTE | 2019-08-13 14:39 | NUR ---
DISCHARGE TO HOME ANTICPATED IN A DAY OR TWO. HOME WITH HOME HEALTH SERVICES. PATIENT DOES NOT WANT TO USE [facility] AGAIN. REQUESTING NEW HH SERVICES. PATIENT REFERRAL FAXED TO [facility] PER REQUEST. CALL PLACED TO [facility]. CALL PLACED TO [facility] TO NOTIFY, SPOKE WITH JOSE LANDAVERDE. PATIENT WAS ONLY SEEN ONCE BY [facility]. BUT WAS NOT EVER ADMITTED TO [facility] PER AKHIL. FOLLOWING.
[2019-08-13 16:00] VITALS: BP 115/70
--- NOTE | 2019-08-13 16:07 | NUR ---
transfered to [facility] after d/c telemetry and giving report to Petrona at 1415. Given newly ordered 20 meq PO potassium dose prior to transfer.
--- NOTE | 2019-08-13 16:12 | NUR ---
SW reviewed chart and spoke with nursing and attending physician. Pt is progressing towards goals for discharge. Discharge home with HH is anticipated for tomorrow. No preference of HH agency voiced by pt. Referral sent to [facility], who can accept pt on service. Pt to [facility] to [facility] later today. RENEA is following to assist as needed with discharge planning.
--- NOTE | 2019-08-13 18:00 | NUR ---
PATIENT TRANSFERRED FROM [facility], REPORT FROM RICKY/RN, REPORT WAS GIVEN TO ROSARIO/ИРИНА. PATIENT ALERT AND ORIENTED X 4. UP WITH 1 ASSIST. PATIENT VOIDS PER URINAL. LEFT AC IV IN PLACE, RECEIVED IV ANTIBIOTIC THIS SHIFT. BRUISING TO LEFT ORBITAL FROM FALL AT HOME. DENIES PAIN THIS SHIFT. RUNS OCCASSIONALLY TACHY. BLOOD SUGAR MONITORING ORDERED. WILL CONTINUE TO MONITOR.
[2019-08-13 19:29] VITALS: BP 126/79
--- NOTE | 2019-08-14 04:57 | NUR ---
ASSUMED PT CARE AT 1915. PT WAS RESTING DURING REPORT. PT IS A&OX4. IV IS IN LEFT FOREARM SALINE LOCKED. PT USES URINAL AT BEDSIDE. PT CALLS OUT APPROPRIATELY. PT REQUESTED THAT HIS LOS[place] BE CUT IN HALF. I DID SO AND HE TOOK HALF AND I DISCARDED THE SECOND HALF. PT TOOK THE REST OF HIS MEDS FINE. NO INSULIN WAS GIVEN, NOT INDICATED. PT SLEEPS OFF AND ON ALL NIGHT. PT IS PLEASANT. WILL CONTINUE TO MONITOR.
[2019-08-14 07:35] VITALS: BP 118/79
[2019-08-14 10:26] VITALS: BP 118/79
[2019-08-14 14:17] VITALS: BP 107/67
--- NOTE | 2019-08-14 14:22 | NUR ---
DISCHARGE NOTES: SW reviewed chart and spoke with nursing and attending physician. Pt is medically stable for discharge home today. Orders written for HH services. [facility] is able to accept pt on service. SW met with pt at bedside to discuss discharge plan. Pt is aware and in agreement with discharge plan. manufacturing planner to fax finalized discharge orders/summary to [facility]. Contact info for HH placed in pt's discharge summary. Pt states he will have transportation home. No additional SW needs identified at this time, but is available to assist should needs arise.
--- NOTE | 2019-08-14 18:36 | NUR ---
ASSUMED CARE OF PATIENT AT 0715, PATIENT ALERT AND ORIENTED. PATIENT DENIES PAIN THIS SHIFT. PATIENT UP TO THE CHAIR MOST OF THE DAY. PATIENT HAS LEFT IV RECEIVED 1 IV ANT[address]IC THIS SHIFT. DR AGUIRRE HERE THIS AM, PATIENT WILL DISCHARGE TO HOME WITH HOMEHEALTH AFTER PT DOES EVAL FOR SAFETY. THOMAS/PT WALKED WITH THE PATIENT AND OK FOR HOME WITH HOMEHEALTH. HERE THIS EVENING TO PICKUP THE PATIENT. THIS RN CALLED [facility] TO CHECK IF OK TO DRIVE, DR AGUIRRE STATES NO TO DRIVING, IF THEY NEED TO RESCHEDULE APPT ON MONDAY UNTIL NEXT OK TO GET THE STITCHES OUT. LEFT IV REMOVED PRIOR TO DISCHARGE. ALL DISCHARGE PAPERWORK AND ALL PERSONAL BELONGINGS SENT WITH THE PATIENT. BRUISING AROUND LEFT EYE STILL NOTED AND STITCHES.
--- NOTE | 2019-08-14 19:41 | NUR ---
I AGREE WITH NURSING ASSESSMENT AND NURSING NOTE DONE BY ROSARIO/ИРИНА.
== END 2019-08-14 18:46 | disposition home health service (06) | DRG 871 ==
LOC: ER 12:54 → 3W 15:56 → EROBS 15:56 → 3W 16:37 → 4N 08-13 15:16 → ENTRNSPT 08-14 17:40 → 4N 08-14 18:46
PROVIDERS: Emergency Medicine; ADMIT Family Medicine
PROC: 0HQ1XZZ Repair Face Skin, External Approach (ICD-10-PCS; 2019-08-10)
PROC: 5A09357 Assistance with Respiratory Ventilation, Less than 24 Consecutive Hours, Continuous Positive Airway Pressure (ICD-10-PCS; principal; 2019-08-14)
DX: A41.9 Sepsis, unspecified organism (principal); E43 Unspecified severe protein-calorie malnutrition; N17.0 Acute kidney failure with tubular necrosis; Z68.41 Body mass index [BMI] 40.0-44.9, adult; S01.01XA Laceration without foreign body of scalp, initial encounter; E11.9 Type 2 diabetes mellitus without complications; K21.9 Gastro-esophageal reflux disease without esophagitis; G47.30 Sleep apnea, unspecified; J44.9 Chronic obstructive pulmonary disease, unspecified; I50.9 Heart failure, unspecified; W18.39XA Other fall on same level, initial encounter; R74.8 Abnormal levels of other serum enzymes; E87.6 Hypokalemia; Y99.8 Other external cause status; Y93.89 Activity, other specified; Z79.82 Long term (current) use of aspirin; Z95.820 Peripheral vascular angioplasty status with implants and grafts; Z90.89 Acquired absence of other organs; Z98.42 Cataract extraction status, left eye; Z87.891 Personal history of nicotine dependence; Z98.41 Cataract extraction status, right eye; Z79.899 Other long term (current) drug therapy; Z88.0 Allergy status to penicillin; Z88.8 Allergy status to other drugs, medicaments and biological substances; Y92.89 Other specified places as the place of occurrence of the external cause; S01.112A Laceration without foreign body of left eyelid and periocular area, initial encounter
CPT/HCPCS: 10790; 10879

== ENCOUNTER → 2019-10-23 | Outpatient (CLI) | payer OTHER, BC ==
[~2019-10-23] MED LIST changes: +BIOFREEZE118 ML TOP; +BREO ELLIPTA 11 EACH INH; +LACTULOSE10 GM/152 PO; +MIDODRINE HCL 55 M1 PO; +MULTIPLE VITAM1 EAC2 PO; +OMEPRAZOLE 20 M20 M1 PO; +POTASSIUM20 PO; +PROAIR HFA8.5 GM INH; +ROLAIDS CHEWAB1 EAC1 PO; +XIFAXAN550 MG PO
== END ==
LOC: CAT 12:33
PROVIDERS: ATTEND Family Medicine
DX: R41.82 Altered mental status, unspecified (principal); G31.9 Degenerative disease of nervous system, unspecified

== ENCOUNTER 2019-12-04 19:34 | Inpatient (IN) | payer OTHER, BC ==
[~2019-12-04] VITALS: Ht 175.3 cm; Wt 81.6 kg
--- NOTE | ~2019-12-04 | EMS ---
[address] [address] EMS Patient Care Report Name: VISHNU HOWARD Room #: 170-1 ADM IN M.R.#: [id number] Admission: 12/04/19 Attend Phys: Fab Navarro MD Discharge: Date of : 46 Report #: [id number] THIS REPORT FOR: //name// Report Transmitted: 12/04/2019 20:20 EMS Care Summary General Acute Hospital MED-ACT Incident [id number] @ 12/04/2019 19:03 Incident Location [address] [place] [id number] Patient VISHNU HOWARD Male, 69 Years 1950 Patient Address [address] [place] [address] Patient History Congestive Heart Failure (CHF),Chronic Obstructive Pulmonary Disease (COPD),Kidney/Renal Failure,Pneumonia, Patient Allergies Penicillin allergy,Zolpidem, Patient Medications Proair, Lactulose, Aspirin, Midodrine, Chief Complaint "His ammonia levels are high." Disposition Transported No Lights/[place] Dispatch Reason Unconscious/Fainting Transported To [facility] Narrative History: Staff on scene reports that the pt's labs were drawn at an unknown time. Staff reports the pt's labs came back with elevated ammonia levels. Staff [address] [address] EMS Patient Care Report Name: VISHNU HOWARD Room #: 170-1 ADM IN [facility]#: [id number] Admission: 12/04/19 Attend Phys: Fab Navarro MD Discharge: Date of : 46 Report #: [id number] reports the pt also did not appear as engaged with his family when they came to visit this afternoon. Staff reports they do not know what the pt's mental status is, but that they believe he is altered. Pt initially denies any complaints. Pt eventually admits that he has been feeling drowsy for the last couple of hours. Pt denies any shortness of breath or chest pain. Patient denies any syncope. No other complaints noted at this time. Assessment: Pt was found laying in bed in the company of [facility] personnel and facility staff. Pt ABCs intact. Pt A&Ox4. Pt did not appear to be in any acute distress. See assessment tab for detailed physical exam findings and pertinent negatives. Treatment: Primary. VS. HPI. PMH. Physical exam. Pt moved via sheet drag to EMS stretcher. Pt secured in semi-watson's position. Pt moved via stretcher to ambulance. Bg assessment. Transport: En route, continue with on-going assessment. Biocom to [place]. Pt VS and condition remained unchanged throughout transport phase. No other changes noted. Destination: Pt was brought via stretcher to ED room 8. Pt moved via sheet drag to hospital bed. Report to attending RN. Patient signed. Care transferred. Initial Vitals @19:19P: 93,R: 18,BP: 105/72,Pain: 0/10,Glucose: 112,SpO2: 97, @PTAP: 89,R: 18,BP: 93/66,Pain: 0/10,GCS: 15,SpO2: 96,Revised Trauma: 12, Assessments @19:12MENTAL:Person Oriented,Other,Place Oriented,Event Oriented,Time Oriented,SKIN:HEENT:Head/Face: No Abnormalities,LUNG SOUNDS:Left Upper: No Abnormalities,Right Upper: No Abnormalities,Left Lower: No Abnormalities,Right Lower: No Abnormalities,ABDOMEN:Left Upper: No Abnormalities,Right Upper: No Abnormalities,Left Lower: No Abnormalities,Right Lower: No Abnormalities,PELVIS//GI:Incontinence,EXTREMITIES:Left Arm: No Abnormalities,Right Arm: No Abnormalities,PULSE:NEURO: Impression Altered Mental Status Timeline SOFT CRAB SHEDDER,BP: 93/66 M,PULSE: 89,RR: 18 R,SPO2: 96 Ox,ETCO2: ,BG: ,PAIN: 0,GCS: 15, 19:01,Call Received 19:01,Psap Call 19:03,Dispatched 19:03,En Route [address] [address] EMS Patient Care Report Name: VISHNU HOWARD Room #: 170-1 ADM IN M.R.#: [id number] Admission: 12/04/19 Attend Phys: Fab Navarro MD Discharge: Date of : 46 Report #: [id number] 19:09,On Scene 19:11,At Patient 19:19,BP: 105/72 M,PULSE: 93,RR: 18 R,SPO2: 97 Ox,ETCO2: ,B,PAIN: 0,GCS: , 19:19,Depart Scene 19:28,At Destination 19:48,Call Closed Disclaimer v1.1 Copyright 2020 [employer] This EMS Care Summary contains data elements from the applicable legal record (which may be displayed differently). It is designed to provide pertinent information for the following purposes: continuity of care, clinical quality, and state data reporting. The complete legal record is available to ED staff and administrators of the receiving hospital in [email or web address]'s Patient Tracker. All data is provided "as is."
[2019-12-04 19:34] VITALS: BP 115/66
[~2019-12-04 19:34] MED LIST changes: -BIOFREEZE118 ML TOP; -BREO ELLIPTA 11 EACH INH; -LACTULOSE10 GM/152 PO; -MIDODRINE HCL 55 M1 PO; -PROAIR HFA8.5 GM INH; -ROLAIDS CHEWAB1 EAC1 PO; -XIFAXAN550 MG PO
[2019-12-04 20:04] LABS: ABSOLUTE NEUTROPHILS 3.1 thou/uL (1.4-8.2); BASOPHILS 0.6 % (0.0-2.0); EOSINOPHILS 2.2 % (0.0-3.0); HEMATOCRIT 30.1 % (42.0-52.0); HEMOGLOBIN 10.5 gm/dL (14.0-18.0); LYMPHOCYTES 15.7 % (24.0-44.0); MCH 31.8 pg (26.0-34.0); MCV 90.9 fL (80.0-100.0); MONOCYTES 8.5 % (1.0-8.0); PLATELET COUNT 108 thou/uL (150-400); RBC 3.31 mil/uL (4.50-6.00); RDW 17.4 % (10.5-14.5); WBC 4.2 thou/uL (4.0-11.0)
[2019-12-04 20:13] LABS: CALCIUM 11.7 mg/dL (8.5-10.1); CREATININE 2.8 mg/dL (0.7-1.3); POTASSIUM 4.6 mmol/L (3.5-5.1)
[2019-12-04 20:19] LABS: ALBUMIN 2.4 g/dL (3.4-5.0); TOTAL BILIRUBIN 0.8 mg/dL (<0.1-1.0); TOTAL PROTEIN 5.5 g/dL (6.4-8.2)
[2019-12-04 20:42] LABS: URINE BILIRUBIN NEGATIVE (Negative); URINE BLOOD 1+ (Negative); URINE CLARITY CLEAR; URINE COLOR YELLOW; URINE GLUCOSE-RANDOM* TRACE (Negative); URINE KETONES NEGATIVE (Negative); URINE LEUKOCYTES-REFLEX NEGATIVE (Negative); URINE NITRITE-REFLEX NEGATIVE (Negative); URINE PROTEIN (DIPSTICK) 2+ (Negative); URINE SPECIFIC GRAVITY 1.025 (1.005-1.035); URINE UROBILINOGEN 0.2 E.U./dl (0.2-1.0)
[2019-12-04 21:03] LABS: BACTERIA-REFLEX 1-9 Few /HPF (None Seen); CELLULAR CASTS 4-10 Moderate /LPF (None Seen); CRYSTALS None Seen /LPF (None Seen); HYALINE CASTS 0-3 Few /LPF (None Seen); MUCUS 0-3 Light strn/LPF (None Seen); SQUAMOUS 0-3 Few /LPF (0-3); URINE RBC 3-10 Few /HPF (0-2); URINE WBC-REFLEX 0-5 Rare /HPF (0-5)
[2019-12-04] MEDS ORDERED: BIOFREEZE118 ML TOP (21:03)
[2019-12-04] MEDS ORDERED: BREO ELLIPTA 11 EACH INH (21:04)
[2019-12-04] MEDS ORDERED: MIDODRINE HCL 55 M1 PO (21:06)
[2019-12-04] MEDS ORDERED: LACTULOSE10 GM/152 PO (21:06)
[2019-12-04] MEDS ORDERED: MAGNESIUM250 M1 PO (21:06)
[2019-12-04] MEDS ORDERED: PROAIR HFA8.5 GM INH (21:07)
[2019-12-04] MEDS ORDERED: ROLAIDS CHEWAB1 EAC1 PO (21:07)
[2019-12-04 21:52] VITALS: BP 102/68
[2019-12-04 22:25] VITALS: BP 97/62
--- NOTE | 2019-12-05 03:42 | NUR ---
PT ON UNIT AT 2240. PT SLEEPING DURING ADMISSION ASSESSMENT. PT RESTING IN BED WITHOUT INTERRUPTION OR OBSERVATION OF PAIN OR SOB. PT NOTED TO SHIFT INDEPENDENTLY WHILE IN BED. PT ROOM NEAR NURSES STATION, CALL LIGHT WITHIN REACH, BED ALARM ON, BED IN LOWEST POSITION. WILL CONTINUE TO MONITOR.
[2019-12-05 04:45] VITALS: BP 138/61
--- NOTE | 2019-12-05 06:33 | NUR ---
PT NOTED TO HAVE PAIN WITH MOVEMENT AND REPOSITIONING EVIDENCE BY PT GUARDING LUE AND SAYING OW. PT AOX1, SELF. CONTACTED DPOA TO RECONCILE MEDICATIONS AND REVIEWED MEDICAL HISTORY. PROVIDED DPOA PT ROOM NUMBER AND UNIT NUMBER. ENCOURAGED DPOA TO CONTACT STAFF FOR ANY CONCERNS. PT CONTINUES TO REST IN BED WITHOUT INTERRUPTION OR OBSERVATION OF PAIN OR SOB. WILL CONTINUE TO MONITOR.
[2019-12-05 07:35] VITALS: BP 90/53
[2019-12-05 08:11] LABS: CREATININE 2.8 mg/dL (0.7-1.3); MAGNESIUM 2.5 mg/dL (1.8-2.4)
--- NOTE | 2019-12-05 08:13 | EKG ---
[facility] [place] [address] [address] ELECTROCARDIOGRAM REPORT Name: VSIHNU HOWARD Room #: 445-P ADM IN M.R.#: [id number] Admission: 12/04/19 Attend Phys: Fab Navarro MD Discharge: Date of : 46 Report #: [id number] THIS REPORT FOR: cc: Fab Navarro MD, Neal A. MD Lundgren,Jarret Marie MD 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: : 1950 Requested By: Gerard Milton Order Number: [id number] MD: Jarret Izquierdo Measurements Intervals [place] Rate: 93 P: 85 [place]: 236 QRS: -60 QRSD: 127 T: 108 QT: 373 QTc: 464 Interpretive Statements Sinus rhythm Prolonged [place] interval Nonspecific IVCD with LAD Nonspecific ST and T wave abnormality Compared to ECG 08/10/2019 13:00:44 Premature ventricular complexes are no longer present Electronically Signed On 12-05-2019 8:11:24 CDT by Jarret Izquierdo [email or web address] <ELECTRONICALLY SIGNED> By: Jarret Izquierdo MD, FAC 12/05/19810 58 58 Jarret Izquierdo MD, FAC /EPI
[2019-12-05 08:15] LABS: POTASSIUM 3.3 mmol/L (3.5-5.1)
--- NOTE | 2019-12-05 13:59 | NUR ---
PT ADMITTED RELATED TO ROSALIO AND HEPATIC ENCEPHALOPATHY. JAILYN REVIEWED CHART AND SPOKE WITH CARE TEAM. JAILYN CALLED AND SPOKE WITH PT'S SPOUSE. SHE INDICATED THAT PT HAD BEEN AT [facility] FOR A FEW HOURS THAT HE ADMITTED THERE MONDAY AM FOR SKILLED REHAB. SHE STATED THAT PRIOR TO THAT PT HAD BEEN AT HOME WITH [facility]. HE HAD USED A FWW TO ASSIT WITH MOBILITY. SHE INDICATED THAT THEY LIVE IN A HOUSE WITH 3 STEPS TO ENTER AND NONE INSIDE. SHE INDICATED THAT HE HAD BEEN INDEPDENENT WITH [facility] UNTIL ABOUT A WEEK AGO. SHE INDICATED THAT HE HAD DISCHARGED HOME FROM [facility] HAVING BEEN THERE FOR 15 DAYS ON 11/19/19 AND HAD [facility]. SHE INDICATED THAT SHE ANTICIPATES PT RETURNING TO [facility] ONCE MEDICALLY STABLE AND THEN TO EVENTUALLY RETURN HOME. CLINICAL INFO SENT TO [facility]. JAILYN TO FOLLOW INDICATED WITH DC PLANNING.
[2019-12-05 16:18] VITALS: BP 94/47
--- NOTE | 2019-12-05 16:44 | NUR ---
FAXED CLINICAL UPDATE TO [facility] RECEIVED CONFIRMATION AND SPOKE WITH ADM LIASON THEY WILL FOLLOW IF PT IS TO RETURN TO THEIR FACILITY SPOKE WITH JESSY FROM [facility] THEY CAN ACCEPT IF PT DISCHARGES TO HOME WITH HH. DP TO FOLLOW.
--- NOTE | 2019-12-05 17:43 | NUR ---
PT ASSESSED AT START OF SHIFT. DR. AGUIRRE HERE EARLY TO SEE PT AND WRITE ORDERS. PT CONFUSED THIS AM BUT SOME BETTER THE DAY PROGRESSED. SPOKE W/ HIS SON ON THE PHONE AFTER TALKING W/ RN AT THE DESK. EATING SOME AND FEEDING HIMSELF. IS HAVING INCONTINENCE AND BRIEFS ARE IN PLACE. SMALL FORMED BM ONCE. TAKING LACTULOSE SCHEDULED. AMMONIA LEVEL DOWN. IV FLUIDS INFUSING.
[2019-12-05 19:35] VITALS: BP 100/70
[2019-12-06 04:27] VITALS: BP 92/57
--- NOTE | 2019-12-06 05:25 | NUR ---
ASSUMED PT CARE AT 1900. PT IS ORIENTED TO SELF ONLY, CONFUSED ABOUT WHO STAFF IS. INCONTINENT OF BB. NO STOOL OVERNIGHT. TURNS SELF IN BED. FLUIDS INFUSING PER ORDER. ENCOURAGING PT TO DRINK. NO COMPLAINTS OVERNIGHT, WILL CONTINUE TO MONITOR.
[2019-12-06 07:34] VITALS: BP 106/47
[2019-12-06 08:12] LABS: ALBUMIN 2.1 g/dL (3.4-5.0); CALCIUM 10.3 mg/dL (8.5-10.1); CREATININE 2.6 mg/dL (0.7-1.3); POTASSIUM 3.1 mmol/L (3.5-5.1); TOTAL BILIRUBIN 0.8 mg/dL (<0.1-1.0); TOTAL PROTEIN 4.6 g/dL (6.4-8.2)
--- NOTE | 2019-12-06 14:07 | NUR ---
ON-GOING ASSESSMENT: CM REVIEWED CHART AND SPOKE WITH ATTENDING. PT IS SLOWLY PROGRESSING TOWARDS DISCHARGE GOALS. PLANS ARE FOR PATIENT TO RETURN TO [facility] AT DISCHARGE. CM SPOKE WITH ATTENDING AND PLANS ARE FOR PATIENT TO DISCHARGE BACK TO [facility] LIKELY TOMORROW 12/06. IF PATIENT IS STABLE FOR DISCHARGE CONTACT ADMISSIONS CELL AT [facility]: [phone] and THEY WILL FACILITATE DISCHARGE AND ARRANGE TRANSPORTATION. FAX DISCHARGE ORDERS/SUMMARY TO THEIR FAX:[phone] CONTACT PATIENTS TO NOTIFY HER. A CHART COPY WILL NEED TO BE SENT WITH PATIENT. CM SPOKE WITH PATIENTS AND SON TODAY TO UPDATE THEM. [facility] ADMISSIONS CELL:[phone] [facility] FAX:[phone]
[2019-12-06 15:26] VITALS: BP 134/91
--- NOTE | 2019-12-06 18:06 | NUR ---
PT SELF AND SOMETIMES PLACE, VERY CONFUSED. MAX ASSIST TO TRANSFER PT. IV IN L AC INFUSING FLUIDS W/O COMPS. INCONT. OF BLADDER TODAY. REFUSED TO WORK WITH OT TODAY. SON WESLY HAS BEEN UPDATED A FEW TIMES TODAY.CALL LIGHT W/I REACH, BED/CHAIR ALARMS ARE ALWAYS ON.
[2019-12-06 19:35] VITALS: BP 102/64
--- NOTE | 2019-12-07 01:31 | NUR ---
ASSESSMENT COMPLETED. PT IS CONFUSED. TALKS IN A WHISPER. VERY DROWSY, COULD HARDLY SUSTAIN A CONVERSATION WITH FAMILY ON THE PHONE EARLIER ON IN THE SHIFT, HE IS ALSO SO WEAK TO EVEN HOLD A PHONE. REQUIRES Q2 HR TURN. INCONTINENT OF BLADDER. WITH ASCITES AND SOME JAUNDICE.SOME SWELLING TO BLE. SCDS IN PLACE. IVF INFUSING.FALL PREC IN PLACE.WILL CONTINUE WITH POC TILL EOS.
[2019-12-07 03:50] VITALS: BP 124/85
[2019-12-07 08:19] VITALS: BP 109/81
[2019-12-07 13:39] LABS: ALBUMIN 2.2 g/dL (3.4-5.0); CREATININE 2.5 mg/dL (0.7-1.3); TOTAL BILIRUBIN 0.9 mg/dL (<0.1-1.0); TOTAL PROTEIN 5.1 g/dL (6.4-8.2)
[2019-12-07 15:55] VITALS: BP 120/98
[2019-12-07 15:58] VITALS: BP 125/74
--- NOTE | 2019-12-07 18:27 | NUR ---
ASSUMED PATIENT CARE AROUND 0715. ORIENTED TO PERSON, CONFUSED. INCONTINENCE OF BOWEL AND BLADDER.SCDS IN PLAC, ON ROOM AIR, FALL PRECATION IN PLACE. O/E ABDOMEN LARGE ASCITIC, YELLOWISH DISCOLORATION OF SKIN. TURN q 2HRS. PATIENT NOT EATING WELL, POTASSIUM DECREASED (3). IV LEFT AC WITH NORMAL SALINE RUNNING.
[2019-12-07 19:46] VITALS: BP 107/64
--- NOTE | 2019-12-08 04:59 | NUR ---
PT BEEN INCONTINENT OF BLADDER SEVERAL TIMES IN THE NIGHT. HE HAS BEEN MORE AWAKE TONIGHT, TALKING BUT NOT MAKING MUCH SENSE- HE REMAINS REALLY CONFUSED. HE NEEDS SOME HELP TO REPOSITION IN BED, HE WILL HOWEVER TURN TO HIS FAVORED LEFT SIDE BY HIMSELF. TRACE EDEMA TO BLE. ASCITES. HE IS ON ROOM AIR-NO RESP DITREESS NOTED.IVF INFUSING VIA LAC. WILL CONTINUE WITH POC TILL EOS.
[2019-12-08 07:23] LABS: CALCIUM 9.8 mg/dL (8.5-10.1); CREATININE 2.4 mg/dL (0.7-1.3); MAGNESIUM 1.9 mg/dL (1.8-2.4); POTASSIUM 3.2 mmol/L (3.5-5.1); TOTAL BILIRUBIN 0.8 mg/dL (<0.1-1.0); TOTAL PROTEIN 4.7 g/dL (6.4-8.2)
[2019-12-08 08:31] VITALS: BP 110/74
[2019-12-08] MEDS ORDERED: XIFAXAN550 MG PO (13:44)
--- NOTE | 2019-12-08 14:04 | NUR ---
ASSUMED PATIENT CARE AROUND 0715.PATIENT ORIENTED TO PERSON, PLACE, BUT CONFUSED. CALM, PLEASANT, TALKING, BUT NOT MAKING SESNSE.INCONTINENCE OF BB,FALL PRECAUT IN PLACE, ON ROOM AIR. IV FLUSHED AND SALINE LOCKED. POTASSIUM LOW (3.2), DOCTOR NOTIFIED. SKIN TEAR NOTICED ON LEFT ANTICUBITAL AREA, LOOKS LIKE PATIENT TRIED TO REMOVE THE BANDAID AFTER LABS DRAWN. SKIN TEAR CLEANED AND DRESSED.
== END 2019-12-08 16:05 | DRG 441 ==
LOC: ER 19:34 → 4S 20:56 → EROBS 20:56 → 4S 22:34
PROVIDERS: Emergency Medicine; Internal Medicine; ADMIT Family Medicine
DX: K72.90 Hepatic failure, unspecified without coma (principal); E43 Unspecified severe protein-calorie malnutrition; G93.41 Metabolic encephalopathy; N17.9 Acute kidney failure, unspecified; I42.9 Cardiomyopathy, unspecified; E44.0 Moderate protein-calorie malnutrition; I50.22 Chronic systolic (congestive) heart failure; J44.9 Chronic obstructive pulmonary disease, unspecified; N18.9 Chronic kidney disease, unspecified; K21.9 Gastro-esophageal reflux disease without esophagitis; E11.22 Type 2 diabetes mellitus with diabetic chronic kidney disease; I35.0 Nonrheumatic aortic (valve) stenosis; G47.33 Obstructive sleep apnea (adult) (pediatric); G47.30 Sleep apnea, unspecified; I25.10 Atherosclerotic heart disease of native coronary artery without angina pectoris; I34.0 Nonrheumatic mitral (valve) insufficiency; Z90.89 Acquired absence of other organs; Z98.42 Cataract extraction status, left eye; Z98.41 Cataract extraction status, right eye; Z87.891 Personal history of nicotine dependence; Z79.82 Long term (current) use of aspirin; Z79.899 Other long term (current) drug therapy; Z88.0 Allergy status to penicillin; Z88.8 Allergy status to other drugs, medicaments and biological substances; Z68.26 Body mass index [BMI] 26.0-26.9, adult
CPT/HCPCS: 10195

== ENCOUNTER 2019-12-13 19:55 | Inpatient (IN) | payer OTHER, BC ==
[~2019-12-13] VITALS: Ht 170.2 cm; Wt 90.7 kg
[~2019-12-13 19:55] MED LIST changes: +BIOFREEZE118 ML TOP; +BREO ELLIPTA 11 EACH INH; +LACTULOSE10 GM/152 PO; +MIDODRINE HCL 55 M1 PO; +PROAIR HFA8.5 GM INH; +ROLAIDS CHEWAB1 EAC1 PO; +XIFAXAN550 MG PO
[2019-12-13 19:59] VITALS: BP 100/68
[2019-12-13 20:32] LABS: ABSOLUTE NEUTROPHILS 2.9 thou/uL (1.4-8.2); BASOPHILS 0.6 % (0.0-2.0); EOSINOPHILS 1.7 % (0.0-3.0); HEMOGLOBIN 10.4 gm/dL (14.0-18.0); LYMPHOCYTES 15.8 % (24.0-44.0); MCH 32.2 pg (26.0-34.0); MCHC 34.7 g/dL (28.0-37.0); MCV 92.8 fL (80.0-100.0); PLATELET COUNT 84 thou/uL (150-400); POLYS 72.9 % (36.0-66.0); RBC 3.23 mil/uL (4.50-6.00); RDW 17.7 % (10.5-14.5); WBC 3.9 thou/uL (4.0-11.0)
[2019-12-13 20:44] LABS: ALBUMIN 2.2 g/dL (3.4-5.0); CALCIUM 10.1 mg/dL (8.5-10.1); CREATININE 3.3 mg/dL (0.7-1.3); DIRECT BILIRUBIN 0.3 mg/dL (<0.1-0.2); MAGNESIUM 2.6 mg/dL (1.8-2.4); TOTAL BILIRUBIN 1.1 mg/dL (0.2-1.0); TOTAL PROTEIN 4.9 g/dL (6.4-8.2)
[2019-12-13 20:49] LABS: POTASSIUM 2.9 mmol/L (3.5-5.1)
[2019-12-13 20:53] LABS: URINE CLARITY CLOUDY; URINE COLOR YELLOW
[2019-12-13 20:55] LABS: URINE GLUCOSE-RANDOM* NEGATIVE (Negative); URINE KETONES TRACE (Negative); URINE PROTEIN (DIPSTICK) 2+ (Negative)
[2019-12-13 20:56] LABS: URINE BILIRUBIN NEGATIVE (Negative); URINE BLOOD 3+ (Negative); URINE LEUKOCYTES-REFLEX 3+ (Negative); URINE NITRITE-REFLEX POSITIVE (Negative); URINE UROBILINOGEN 0.2 E.U./dl (0.2-1.0)
[2019-12-13 20:58] LABS: BACTERIA-REFLEX >30 Many /HPF (None Seen); CRYSTALS None Seen /LPF (None Seen); HYALINE CASTS 4-10 Moderate /LPF (None Seen); MUCUS 0-3 Light strn/LPF (None Seen); SQUAMOUS 0-3 Few /LPF (0-3); URINE RBC >20 Many /HPF (0-2); URINE WBC-REFLEX >25 Many /HPF (0-5); WBC CLUMPS Packed (None Seen)
--- NOTE | 2019-12-13 21:36 | NUR ---
TALKED WITH SON WHO LEFT 'S PHONENUMBER FOR UPDATES
[2019-12-14] VITALS (7 sets, daily range): BP systolic 96–124; BP diastolic 50–86
--- NOTE | 2019-12-14 00:58 | NUR ---
CALLED KAROLINA AND TOLD HER PT'S ROOM NUMBER
--- NOTE | 2019-12-14 02:10 | NUR ---
SPOKE TO MARIA EUGENIA, NURSE FROM [facility]. ASKED HER TO FAX [employer] AND SOME INFO D/T PT COMING TO ER WITHOUT ANY PAPERWORK.
[2019-12-14] MEDS ORDERED: LACTULOSE10 GM/152 PO (02:38)
[2019-12-14] MEDS ORDERED: MIDODRINE HCL 55 M1 PO (02:39)
--- NOTE | 2019-12-14 04:34 | NUR ---
ADMITTED FROM ER UNDER 'S CARE. SEEN BY APRIL ECKERT ORDER DESK CLERK FOR AT BEDSIDE. VSS. ALERT TO SELF AND UNABLE TO ANSWER MAJORITY OF THE QUESTIONS DUE TO DEC LOC. NO S/S ACUTE DISTRESS NOTED OR REPORTED AT THIS TIME. WILL CONT TO MONITOR FOR ANY CHANGES IN CONDITION.
--- NOTE | 2019-12-14 19:35 | NUR ---
Assessment completed.vss but low bp noted.Pt on midodrine. Dr Ruffin and Breanna here,order noted.Pt was angry most of the time related to blood drawn and was abusive to lab and nsg staff.Family updated with status.Assisted tray setup at all meals.Fair appetite.Iv team evaluated piv and okay to use. No verbal c/o. Repositioned pt for comfort and complete bed change done.Will continue to monitor.
--- NOTE | 2019-12-15 05:18 | NUR ---
PATIENT ALERT TO NAME. CONFUSED AND COOPERATIVE WITH COAXING. BS MONITORED PER ORDER. TX CATHETER TO D/D WITH YELLOW URINE. MEDIUM, FORMED, BROWN BM DURING THE NIGHT (INCONTINENT). REMAINS WITH GENERALIZED EDEMA +2-3. PATIENT DID NOT SLEEP MUCH DURING THE NIGHT, APPROX. 4-5 HOURS. COOPERATIVE WITH MEDICATION. REMAINS ON TELE SINUS RHYTHUM, PVC. RESTING QUIETLY. WILL MONITOR.
[2019-12-15 06:33] LABS: ALBUMIN 2.2 g/dL (3.4-5.0); CREATININE 2.7 mg/dL (0.7-1.3); MAGNESIUM 2.5 mg/dL (1.8-2.4); POTASSIUM 3.9 mmol/L (3.5-5.1); TOTAL BILIRUBIN 0.6 mg/dL (0.2-1.0)
[2019-12-15 08:00] VITALS: BP 113/69
[2019-12-15 08:29] LABS: HEMATOCRIT 28.7 % (42.0-52.0); HEMOGLOBIN 9.7 gm/dL (14.0-18.0); MCH 31.5 pg (26.0-34.0); MCHC 33.7 g/dL (28.0-37.0); MCV 93.7 fL (80.0-100.0); RBC 3.07 mil/uL (4.50-6.00); RDW 18.5 % (10.5-14.5); WBC 3.6 thou/uL (4.0-11.0)
--- NOTE | 2019-12-15 16:25 | NUR ---
Assumed pt care at 7am.Assessment completed.vss.Assisted pt with tray setup at all meals.Poor appetite noted but pt took meds wihout difficulty.Pt has medium soft stool this shift.Complete bed change done with pericare.Dr Ruffin and Jef here, order noted.Repositioned pt q2h for comfort.Will continue to monitor.
[2019-12-15 19:23] VITALS: BP 132/83
[2019-12-16 04:56] VITALS: BP 110/65
[2019-12-16 05:29] LABS: HEMATOCRIT 31.2 % (42.0-52.0); HEMOGLOBIN 10.6 gm/dL (14.0-18.0); MCH 31.8 pg (26.0-34.0); MCHC 34.1 g/dL (28.0-37.0); MCV 93.2 fL (80.0-100.0); RBC 3.34 mil/uL (4.50-6.00); RDW 18.2 % (10.5-14.5); WBC 4.6 thou/uL (4.0-11.0)
[2019-12-16 05:39] LABS: ALBUMIN 2.2 g/dL (3.4-5.0); CALCIUM 10.2 mg/dL (8.5-10.1); TOTAL BILIRUBIN 0.8 mg/dL (0.2-1.0); TOTAL PROTEIN 5.1 g/dL (6.4-8.2)
[2019-12-16 05:41] LABS: POTASSIUM 2.6 mmol/L (3.5-5.1)
[2019-12-16 07:12] VITALS: BP 100/62
--- NOTE | 2019-12-16 07:18 | HC ---
[facility] [place] [address] CONSULTATION Name: VISHNU HOWARD Room #: 452-P ADM IN M.R.#: [id number] Admission: 12/14/19 Attend Phys: Alexx Sharma MD Discharge: Date of : 46 Report #: [id number] THIS REPORT FOR: cc: Fab Navarro MD, Neal A. MD Neufeld,Shady Galarza MD ~ CC: Alexx Navarro DATE OF SERVICE: 12/14/2019 NEPHROLOGY CONSULTATION REASON FOR CONSULTATION: Elevated creatinine level. HISTORY OF PRESENT ILLNESS: This is a 69-year-old male who is an exceedingly poor historian. He is able to recall his name, but cannot give me no other details. He was admitted overnight from his local care center. We were asked to see him because of a creatinine level up to 3.3. The patient has a history of chronic kidney disease. He had been previously evaluated a couple of years ago by one of my associates, Dr. Cuevas. He had a creatinine level of 2.5 at that time. He had a history of some vascular disease and hypertension. Throughout the course of that hospitalization, he showed an improvement with a creatinine level down to 1.4 by the time of discharge. He was readmitted in July 2019 and ran a creatinine level between 1.2 and 1.6 during that hospitalization. He was in the hospital from December 03 through May 24, which was just about a week ago. During that time, his creatinine level was 2.8 on presentation. We did not see him at that time. It was 2.4 by the time of discharge. Today, he comes in with a creatinine level of 3.3. Again, the patient is a poor historian and cannot give me no real accounting of what has been going on. He is unable to tell me if he has any trouble urinating. His admitting urinalysis showed pyuria with greater than 25 white cells and packed clumps of white cells along with some bacteria and red cells. Culture on that is pending. He has been started on some ceftriaxone intravenously for that. He cannot tell me if he can void or not. He has a condom catheter on. There is obviously some staining of the bed sheets suggesting incontinence. I reviewed his prior workups. He has never had any obstructive changes. Kidneys have always been fairly normal in appearance. His last imaging was on a contrasted CT scan in July 2019. Again, it showed fairly normal looking kidneys. The patient carries a history of some prior vascular disease. This is where inconsistency start to show up. His correction records say that he has an abdominal aortic aneurysm, but in reviewing ultrasounds and CT scans on file here, he has never been found to have an enlarged abdominal aorta. I would note that when we saw him back in 2018 that he was having some urinary retention at that time. It looks like he has had some problems with chronic ____. He has [facility] [address] [place] [address] CONSULTATION Name: VISHNU HOWARD Room #: 452-P ADM IN M.R.#: [id number] Admission: 12/14/19 Attend Phys: Alexx Sharma MD Discharge: Date of : 46 Report #: [id number] required some previous chronic diuretics. The other concern is that he carries a diagnosis of end-stage liver disease, at least based upon his admitting note last night. This was mentioned on his admission a few months ago in addition. There has never been a liver biopsy done. There has been a suggestion on CT scan of some hyperdense areas of his liver, raising the question of some cirrhosis. He has run at most a very mildly elevated bilirubin in 2018 that was running in the 2.2 range, more recently it has been 0.8 up to 1.1 at this time. He has been listed as having hepatic encephalopathy, but his ammonia is less than 10 and at the highest it was 51 and that was 10 days ago. He is chronically on some Xifaxan. It looks like he has also had evaluations in [facility], so they might have done biopsy or further studies at that location to confirm the diagnosis of cirrhosis. His INR is 1.1 on the last check suggesting fairly well maintained synthetic function. Again, there is certainly possibility of some other contributing factors. He has had some thrombocytopenia running in the 84 range at this point. He has a normal MCV of 92.8. Again, it would suggest he has some liver disease, but I am not certainly truly has end-stage liver disease. This would change our thought process on whether he could have some hepatorenal syndrome. Again, the patient is unable to provide any history for me. The changes of his mental status, looks like they have been going on for some time care, clear back in 2018. He was admitted to the rehab unit with cognitive difficulties, difficulty caring at daily care, it was thought that he had significant cardiomyopathy with combined systolic and diastolic heart failure. He also had some obstructive apnea and required CPAP at that time, none of those are really current diagnosis for him. There was also mention that the family in 2018 suggest that he started having neurologic decline in April 2018. MEDICATIONS: Xifaxan 550 mg b.i.d., aspirin 81 mg daily, Breo inhaler, lactulose 15 mg p.r.n., midodrine 5 mg t.i.d., albuterol inhaler. ALLERGIES: HE IS LISTED HIS ALLERGIES TO PENICILLIN AND AMBIEN. FAMILY HISTORY: Unavailable. SOCIAL HISTORY: The patient has been living in a care center most recently. He is and previously lived in [place]. 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 REVIEW OF SYSTEMS: Unavailable from the patient. PHYSICAL EXAMINATION: GENERAL: A 69-year-old male, who is awake and responsive and talking. He knows his name, but really is otherwise totally disoriented. He cannot follow any line of thought as far as asking and answering questions or obtaining any history. No current pain. VITAL SIGNS: Blood pressure 97/61, heart rate 88, oxygen saturation 98%, and temperature 97.4. He has had no fever since he hit the Emergency Room. [address] [address] CONSULTATION Name: VISHNU HOWARD Room #: 452-P [facility] IN .R.#: [id number] Admission: 12/14/19 Attend Phys: Alexx Sharma MD Discharge: Date of : 46 Report #: [id number] HEENT: Shows pupils are equal and reactive. Sclerae nonicteric. Oral mucosa is dry. NECK: Veins are not distended. No adenopathy. Neck is supple. CHEST: Fairly clear bilaterally. HEART: Has a regular rate and rhythm. There is the potential of a few spider angiomata on his chest, but are limited. CARDIOVASCULAR: Heart has a regular rate and rhythm. ABDOMEN: Protuberant with bowel sounds present. I cannot palpate or percuss any ascites or evidence of a fluid wave. I cannot palpate the liver. Due to a size discrepancy, I cannot really tell if the bladder is enlarged at all. EXTREMITIES: Show 2+ bilateral lower extremity edema. Extremities are mildly cool. He has 1+ pedal pulses. LABORATORY DATA: From the Emergency Room; sodium 136, potassium 2.9, chloride 106, bicarbonate 20, BUN 42, creatinine 3.3, and glucose 109. AST 62, ALT 37, total bilirubin 1.1, calcium 10.1, alkaline phosphatase 247, total protein 4.9, albumin 2.2. Lactate was 2.2, a repeat was only 1.1. White count 3.9, hemoglobin 10.4, hematocrit 30.0, MCV of 92.8, platelets 84,000. Differential on the white count, 73 neutrophils, 16 lymphs, 9 monos, 2 eosinophils. Urinalysis, specific gravity 1.030, pH 6.0, 2+ protein, trace ketones, 3+ blood, positive nitrites with many white cells as noted above. Culture on that is pending. ASSESSMENT: 1. Acute kidney injury. Creatinine level up to 3. #1 concern is that of obstruction, particularly with his pyuria and obvious urinary tract infection. From several years ago, he had a history of urinary retention. He has a condom catheter at this time and there is some urine in the Bearden, but we need to check for retention and potentially place a Bearden. He did not have hydronephrosis on his last imaging of his kidneys, which was done in July of 2019, but that was 4 months ago. Blood pressure is on the low side, which can certainly be contributing. He has been historically on some midodrine. He does have some peripheral edema. I will give him just a bit of IV normal saline and we will see how he responds to that. In the interim, we will try to check a fractional excretion of sodium. 2. Chronic kidney disease stage 3. This was evaluated several years ago and has been persistent. 3. Uncertain status of his liver. Based upon his labs, he has some moderate retention of synthetic capacity. Bilirubin is not dramatically elevated. I am not sure this is all hepatic encephalopathy, rather chronic dementia changes. We will see if we can find more records available on that. 4. Chronic dementia as noted above, evidence of this dating back nearly two and a half years. 5. Prior history of heart failure as documented above. 6. History of sleep apnea. It does not look like he is wearing continuous positive airway pressure currently and may now tolerating having a left in [facility] [address] [place] [address] CONSULTATION Name: VISHNU HOWARD Room #: 452-P ADM IN [facility]#: [id number] Admission: 12/14/19 Attend Phys: Alexx Sharma MD Discharge: Date of : 46 Report #: [id number], but it certainly might be contributing to hypercapnia changes. We have no recent blood gas. 7. Chronic debility as noted above. PLAN: 1. I will give him a small bolus of IV saline. 2. Scan his bladder for retention. 3. May need Bearden catheter. 4. Await culture on his urine. 5. Repeat labs. 6. We will try to sort out some of his chronic medical problems as has been listed above because "I am uncertain as to the extent of these previous diagnosis with the inconsistencies." <ELECTRONICALLY SIGNED> By: Shady Fuchs MD 12/16/19 0718 1252 1510 Shady Fuchs MD /nt
--- NOTE | 2019-12-16 10:15 | NUR ---
chart review. cm consulted. unable to visit with jessa per phone call at this time. cm spoke with ann via phone call. into to cm and dcp. she reported " prior to [facility] in aug and september he was independent, has walker with seat and cpap machine that function properly. shower chair. was manage own medication and driving a vehicles. no driving, assistance with medication since aug and september. [facility] with [facility] and [facility] . he will go back to rehab when dc"/ ann. updates to be sent to [facility].
[2019-12-16 15:40] VITALS: BP 128/80
--- NOTE | 2019-12-16 16:27 | NUR ---
FAXED CLINICAL UPDATE TO [facility] RECEIVED CONFIRMATION AND LEFT MSG WITH LORELEI IN ADM. DP TO FOLLOW.
--- NOTE | 2019-12-16 17:26 | NUR ---
PT A&O TO SELF, VSS, NO APPARENT PAIN. PATIENT FRUSTRATED AND TIRED THROUGHOUT DAY, PATIENT REFUSES CARE BUT ABLE TO REDIRECT. IV LEFT UPPER ARM PATENT, FLUIDS RAN. PATIENT HAD RENAL ULTRASOUND TODAY. URINE COLLECTED ORDERED. POTASSIUM LEVEL BEING MONITORED. NO SIGNS OF DISTRESS. WILL CONTINUE TO MONITOR.
[2019-12-16 21:30] VITALS: BP 134/83
[2019-12-17 04:17] VITALS: BP 135/83
--- NOTE | 2019-12-17 07:34 | NUR ---
PROGRESS PT WAS PLEASANT AND COOPERATIVE MOST OF SHIFT, REPOSITIONED WITH ASSIST NEEDED, FALL PRECAUTIONS IN PLACE PT DID NOT GET OOB UNATTENDED. IN ORDERED ALBUMIN ADMINISTERED ORDERED, PT VOIDING MODERATE AMOUNTS OF CLEAR YELLOW URINE.
[2019-12-17 07:37] VITALS: BP 110/53
[2019-12-17 11:26] VITALS: BP 105/51
[2019-12-17 12:03] LABS: ALBUMIN 2.9 g/dL (3.4-5.0); CALCIUM 10.6 mg/dL (8.5-10.1); PHOSPHORUS 2.7 mg/dL (2.5-4.9); POTASSIUM 3.3 mmol/L (3.5-5.1)
[2019-12-17 12:04] LABS: INR 1.4
--- NOTE | 2019-12-17 13:49 | NUR ---
CM TOUCHED BASE WITH ADMISSIONS AT [facility] THEY INDICATED THAT THE HAD RECIEVED REFERRAL AND ANTICPATED THAT THEY WOULD BE ABLE TO ACCEPT PT BACK UPON DC. CM FOLLOWING REGARDING DC PLANNING.
--- NOTE | 2019-12-17 15:23 | NUR ---
Received awake on bed. Due medications given as prescribe, able to swallow meds. On carb controlled diet- pt encouraged and assisted in eating and drinking. On room air. Vital signs stable. A+O to self. Falls bundle in place. on blood sugar monitoring-taken and recorded accordingly; with sliding scale insulin prescribed. With male external lama in place- draining well; output measured and recorded accordingly. With edema at upper extremities- non- weeping; with bruises noted. With SL at L upper arm- intact and flushing well. Pt drowsy but rousable. Skin intact, pt turned on his sides but refusing most of the time. To continue monitoring patient. Dr Navarro called and said that the pt needs to get out of the bed; Pt seen by LINDA Helm this morning and pt not participating in therapy- see Pt's notes. Called PT this afternoon and relayed what physician said, unable to come back. Will try to sit pt out on the chair this dinner.
[2019-12-17 16:36] VITALS: BP 122/67
[2019-12-17 19:12] VITALS: BP 125/84
[2019-12-18 04:07] VITALS: BP 130/86
[2019-12-18 05:54] LABS: ALBUMIN 3.2 g/dL (3.4-5.0); CALCIUM 10.7 mg/dL (8.5-10.1); CREATININE 2.7 mg/dL (0.7-1.3); MAGNESIUM 2.6 mg/dL (1.8-2.4); POTASSIUM 3.5 mmol/L (3.5-5.1); TOTAL BILIRUBIN 0.7 mg/dL (0.2-1.0); TOTAL PROTEIN 5.3 g/dL (6.4-8.2)
--- NOTE | 2019-12-18 06:00 | NUR ---
Pt. rested quietly during the night when checked on during frequent rounds. He has been lethargic, but will open his eyes to verbal stimuli and answer yes/no questions. Drank some po fluis without difficulty. Bed alarm is on.
[2019-12-18 07:13] VITALS: BP 136/89
--- NOTE | 2019-12-18 14:22 | NUR ---
CARE TEAM INDICATED THAT PT TO HAVE MRI THIS DAY AND NEURO CONSULTED. CLINICAL UPDATES TO BE SENT TO [facility]. CM TO FOLLOW INDICATED WITH DC PLANNING.
[2019-12-18 15:00] VITALS: BP 107/64
--- NOTE | 2019-12-18 16:50 | NUR ---
FAXED CLINICAL UPDATE TO [facility] OF OP RECEIVED CONFIRMATION AND LEFT MSG WITH LORELEI IN ADM. DP TO FOLLOW.
[2019-12-18 19:22] VITALS: BP 96/67
--- NOTE | 2019-12-18 19:37 | NUR ---
PT LETHARGIC, VSS, NO APPARENT PAIN. PATIENT REFUSING CARE AND MEDICATION. PATIENT ON SUPPLEMENT AND DRANK 50% AT DINNER. PATIENT HAS POOR APPETITE. SPOKE WITH FAMILY TODAY. NO SIGNS OF DISTRESS. WILL CONTINUE TO MONITOR.
--- NOTE | 2019-12-19 03:48 | NUR ---
Pt. rested quietly during the night when checked on during frequent rounds. He has been lethargic, but responds easily when repositioning. Attempted to feed pt. some pudding, but he would keep it in his mouth and not swallow. Po meds held. Bed alarm is on.
[2019-12-19 04:29] VITALS: BP 132/85
[2019-12-19 06:32] LABS: ALBUMIN 3.3 g/dL (3.4-5.0); CREATININE 2.7 mg/dL (0.7-1.3); PHOSPHORUS 2.1 mg/dL (2.5-4.9)
[2019-12-19 07:13] VITALS: BP 144/89
--- NOTE | 2019-12-19 13:40 | NUR ---
If tube feeds start, recommend jevity 1.5 to start 30ml/hr and progress to goal 60ml/hr. Defer any fluid needs to renal
--- NOTE | 2019-12-19 14:34 | NUR ---
Received on bed, drowsy but rousable. Due medications given as prescribed, crushed and mixed with apple sauce. A+O to self, re-oriented from time to time. On room air. On heart monitoring; no complaints of chest pain, crushing sensation and heaviness. On carb controlled diet- encouraged and assisted in eating and drinking; pt with very poor appetite; tolerating well, no nausea, no vomiting and no abdominal pain noted. On blood sugar monitoring- taken and recorded accordingly- sliding scale insulin prescribed. With male external lama in place- output measured and recorded accordingly; with episodes of incontinence, checked frequently and changed as needed. Turned on his sides, may refuse at times. With SL at L upper arm. Pt seen and examined by Dr Navarro- asked if ok to switch KCL from tablet to powder- orders made. MRI called and said they won't be able to do it until Monday due to pt's AICD- Dr Navarro informed- to inform Dr Mon as well- called Dr Mon's answering service; as per Dr Navarro- to order CT scan of head w/o contrast- orders made, done. Pt brought down via cart for CT scan, tolerated well; transferred back to room safely. A/w call back from Dr Mon. ST evaluation ordered, noticed pt pocketing food- Dr Navarro informed, orders made. Dr Navarro called, pt's to come up in the dover at 1500, he talked to malt house operator Senait and said he got permission. To put in aromatherapist consult for TF recommendation, a/w 's persmission for tube feeding. CT scan result relayed to Dr Navarro. Falls bundle in place. To continue monitoring patient.
[2019-12-19 16:28] VITALS: BP 127/83
[2019-12-19 19:26] VITALS: BP 131/92
[2019-12-20 04:53] LABS: ALBUMIN 3.4 g/dL (3.4-5.0); CALCIUM 11.6 mg/dL (8.5-10.1); CREATININE 2.7 mg/dL (0.7-1.3); PHOSPHORUS 1.8 mg/dL (2.5-4.9); POTASSIUM 3.4 mmol/L (3.5-5.1)
[2019-12-20 07:29] VITALS: BP 107/67
--- NOTE | 2019-12-20 07:38 | NUR ---
PROGRESS DOBHOFF INSERTED INTO LEFT NARE PT SEDATED AND DID NOT PARTICIPATE IN PLACEMENT. PORTABLE CXR CONFIRMED PLACEMENT WAS IN STOMACH AND TUBE FEEDING INITIATED JEVITY 1.2 AT 30CC'S PER HOUR. PUMP ALARMING FREQUENTLY, NG FLUSHED WITHOUT DIFFICULTY BUT UNABLE TO ASPIRATE YET TUBE FEEDING LEAKS OUT WHEN CAP OFF, MOITORED LUNG SOUNDS HOB AT 30 DEGREES. REPOSITIONED FREQUENTLY THROUGHOUT NIGHT. PT WAS SEDATED AND SLEPT ALL SHIFT.
[2019-12-20 11:43] LABS: TSH 2.207 uIU/mL (0.358-3.740)
--- NOTE | 2019-12-20 14:53 | NUR ---
PT HAD MRI OF HEAD TODAY. LP AND EEG ORDERED. NG TUBE WAS TO BE PLACED. NOT DC ANTICPATED OVER THE WEEKEND. CM FOLLOING REGARDING DC PLANNING.
[2019-12-20 16:20] VITALS: BP 102/65
--- NOTE | 2019-12-20 20:29 | NUR ---
Received on bed. A+O to self only, sluggish but rousable. On room air. Vital signs stable. On carb controlled diet- high risk for aspiration- NPO; with ongoing tube feeding: goal rate is 60ml/hr, ongoing rate at 40ml hr, H2O flushes at 150ml done every 4 hrs; minimal residual noted- kept upright. NG had to be reinserted this AM because TF does not go through as well as medications, NG re-inserted, xray obtained. TF resumed once NG safe to use, medications crushed and given through tube. On blood sugar monitoring every 6 hours- with sliding scale insulin prescribed. Incontinent of bowel and bladder- checked frequently and changed as needed. With L FA SL. With upper extremity edema, bruises noted on both arms as well. Pt turned on his sides frequently. Pt seen and examined by Neurology Dr Shaikh, informed her that pt's family wants to be updated, and that MRI is scheduled today- she will be calling pt's family. Pt's son Sadiq and updated re: status. Pt scheduled to have MRI today- [facility] staff will be with pt during procedure. Went with patient down to MRI today- tolerated procedure well- result relayed to Dr Navarro and pt's son. Back to room safely. To continue monitoring patient. With verbal orders for Covid swab from Dr Navarro- done and sent to lab. With orders for lumbar puncture- IR called and said as per Dr Natarajan, they wont be able to do procedure today because pt has pending covid test, had heparin this AM and procedure requested is non urgent- Dr Navarro updated, pt's son informed, possibly on Monday- order to hold Heparin made. Pt's son called again and asked if ok to visit- supervisor wound Senait called and said she could not allow them- called back pt's son and relayed what supervisor wound said. Pt remaining lethargic but rousable the whole shift. To continue monitoring patient.
[2019-12-20 21:17] VITALS: BP 141/75
[2019-12-20 21:19] VITALS: BP 136/81
[2019-12-21] VITALS (44 sets, daily range): BP systolic 94–141; BP diastolic 57–93
--- NOTE | 2019-12-21 04:28 | NUR ---
PT ALERT TO SELF ONLY. PT HAS BEEN LETHARGIC THROUGHOUT THE SHIFT. DENIES PAIN. TF JEVITY 1.5 @60CC/HR VIA R NARE NG TUBE. NPO. ALL MEDS CRUSHED PER NG TUBE. INCONT. TURN/REPO Q2H. ACCU CHECKS. TOTAL PT CARE.
[2019-12-21 06:41] LABS: CALCIUM 11.1 mg/dL (8.5-10.1); CREATININE 2.6 mg/dL (0.7-1.3); PHOSPHORUS 2.3 mg/dL (2.5-4.9); POTASSIUM 3.6 mmol/L (3.5-5.1)
[2019-12-21 10:46] LABS: HCO3 18.1 mmol/L (22.0-26.0); PCO2 27.3 mmHg (35.0-45.0); PO2 69.4 mmHg (80.0-100.0); sO2 94.8 % (92.0-98.0)
--- NOTE | 2019-12-21 11:00 | NUR ---
Pt transferred to ICU via bed from floor. Bedside report receiving from KATELYN Teixeira caring for pt. Pt is lethargic but arousable. Pt will make moaning sounds but is not articulating words. Placed on monitors. Congested cough. Saline lock left arm.
--- NOTE | 2019-12-21 11:32 | NUR ---
ASSUMED CARE AT 0700. PT MINIMALLY REPSONSIVE AND LETHARGIC. FEBRILE OF 100.7. NOTIFIED MD AT 0900 ABOUT FEVER, STATES WILL ADDRESS. PT ON TELE WITH SINUS TACHYCARDIA. DEFIBRILATOR IN PLACE RA, COARSE LUNG SOUNDS WITH MILD-MOD INCREASE WOB, NASAL FALRING. OCC NON-PRODUCTIVE COUGH. SATS 95%. INCONTINENT OF BOWEL AND BLADDER. URINATING FINE, BM TODAY. TOLERATING TUBE FEED THRU NG TUBE. BLOOD SUGAR CHECKS STABLE. PIV INFUSING WITHOUT ISSUES. SKIN INTACT WITH BRUISING AND SKIN TEARS NOTED. Q2 TURNS. 0[address] AZEVEDO HERE TO SEE PT. CONCERNED WITH PT STATUS AND IS TRANSFERRING TO ICU. NEW ORDERS RECIEVED. NOTIFIED HOSPITALIST BY PAGE AT 1000. DR KHALIL ON FLOORT 1008, STOPPED IN TO EVAL PT AND AGREED WITH TRANSFER. PT TRANSFERRED TO ICU AT 1100 AFTER CXR AND ABG DONE. REPORT GIVEN TO OPERATIONS AND MAINTENANCE MANAGER AT BEDSIDE. PT TRANSFERRED IN SAME CONDITION NOTED ABOVE. NOTIFIED AT 1118 OF COMPLETED TRANSFER AND ROOM NUMBER.
--- NOTE | 2019-12-21 11:55 | NUR ---
Pt TRANSFERRED TO ICU. WILL PLACE ON HOLD AND AWAIT ORDERS TO RESUME WHEN APPROPRIATE.
[2019-12-21 12:06] LABS: ABSOLUTE NEUTROPHILS 3.1 thou/uL (1.4-8.2); BASOPHILS 0.5 % (0.0-2.0); EOSINOPHILS 1.3 % (0.0-3.0); HEMOGLOBIN 9.3 gm/dL (14.0-18.0); MCH 32.5 pg (26.0-34.0); MCHC 34.4 g/dL (28.0-37.0); MCV 94.7 fL (80.0-100.0); MONOCYTES 9.4 % (1.0-8.0); PLATELET COUNT 66 thou/uL (150-400); POLYS 73.8 % (36.0-66.0); RBC 2.85 mil/uL (4.50-6.00); RDW 20.3 % (10.5-14.5); WBC 4.3 thou/uL (4.0-11.0)
[2019-12-21 12:21] LABS: APTT 49.2 Seconds (24.5-32.8); INR 1.2; PROTIME 12.1 Seconds (9.3-11.4)
[2019-12-21 13:12] LABS: ANISOCYTOSIS 2+; PLATELET ESTIMATE DECREASED
[2019-12-21 13:13] LABS: OVALOCYTES FEW
[2019-12-21 15:05] LABS: URINE BILIRUBIN NEGATIVE (Negative); URINE BLOOD 1+ (Negative); URINE CLARITY CLEAR; URINE COLOR YELLOW; URINE GLUCOSE-RANDOM* 2+ (Negative); URINE KETONES NEGATIVE (Negative); URINE NITRITE-REFLEX NEGATIVE (Negative); URINE PROTEIN (DIPSTICK) 1+ (Negative); URINE SPECIFIC GRAVITY 1.015 (1.005-1.035); URINE UROBILINOGEN 0.2 E.U./dl (0.2-1.0)
[2019-12-21 15:06] LABS: URINE LEUKOCYTES-REFLEX 1+ (Negative)
[2019-12-21 15:14] LABS: SQUAMOUS 0-3 Few /LPF (0-3)
[2019-12-21 15:15] LABS: FINE GRANULAR CASTS 0-3 Few /LPF (None Seen); HYALINE CASTS 0-3 Few /LPF (None Seen); MUCUS 4-6 Moderate strn/LPF (None Seen)
[2019-12-21 15:16] LABS: URINE RBC 3-10 Few /HPF (0-2)
[2019-12-21 15:17] LABS: BACTERIA-REFLEX 1-9 Few /HPF (None Seen); CRYSTALS None Seen /LPF (None Seen)
--- NOTE | 2019-12-21 19:15 | NUR ---
Call received. from and son near end of shift and update given. Consent obtained for requested records from [facility] and faxed by unit aid. Lethargic and difficult to arouse. Will contact Renal MD for clarification on tube feeding orders. Report to RN assuming care.
--- NOTE | 2019-12-21 22:31 | NUR ---
PT RESTING IN BED. PT OPENED EYES AND TRACKED NURSE DURING ASSESSMENT AND IV PALCEMENT. PT GROANS WITH REPOSITIONING. IVF INTACT, MERINO TO DD, NG INTACT NEPRO TUBE FEEDING. SCDS ON. PROVIDER LACING CUTTER NOTIFIED FAMILY REQUESTED LUMBAR PUNCTURE BE DONE EARLIER THAN MONDAY, DAY SHIFT IS TO NOTIFY DR DURING ROUNDS IN AM.
[2019-12-22] VITALS (33 sets, daily range): BP systolic 71–130; BP diastolic 43–76
[2019-12-22 05:13] LABS: ALBUMIN 2.9 g/dL (3.4-5.0); CREATININE 2.4 mg/dL (0.7-1.3); PHOSPHORUS 2.6 mg/dL (2.5-4.9); POTASSIUM 4.2 mmol/L (3.5-5.1)
--- NOTE | 2019-12-22 08:33 | NUR ---
Pt seen by Dr Hermosillo at beginning of shift and orders received for placement of central line. Telephone consent obtained from pt's for the procedure (see consent form). Dr Shaikh here and talked with on the telephone. Dr Shaikh handed phone over to me so could express desire to have pt be made DNR status in event of life threatening event. Will contact primary physician to discuss.
--- NOTE | 2019-12-22 15:12 | NUR ---
ORDER NOTED FOR CENTRAL LINE PLACEMENT THIS AM. CONSENT NOTED. PER POLICY A #6F TRIPLE LUMEN CENTRAL LINE WAS PLACED IN THE RIGHT IJ. LINE 25 CM [facility] WITHOUT DIFFICULTY. A STAT CHEST XRAY CONFIRMED THE LINE WAS MALPOSITIONED. DR. WHITE AT BEDSIDE AND DUE TO PATIENT STATUS/ PROGNOSIS WELL LOW PLT COUNT HE AGREED WE WOULD AWAIT TO REATTEMPT THE LINE AFTER THE FAMILY IS UPDATED AND PLAN/CODE STATUS IS DISCUSSED. THIS AFTERNOON THE CODE STATUS WAS CHANGED TO A DNR. A 2ND PIV PLACED AND MALPOSITIONED LINE REMOVED. AT THIS TIME 2 PERIPHERAL IV LINES ARE APPROPRIATE AND A 2ND CENTRAL LINE WILL NOT BE ATTEMPTED.
--- NOTE | 2019-12-22 17:30 | NUR ---
Contacted nursing fixer supervisor Jag to see if he had contacted nursing educator regarding family visit. Jag indicated he had not made contact yet with CNO. and son called and informed that approval not yet obtained. Status update given.
--- NOTE | 2019-12-22 19:15 | NUR ---
Report given to RN assuming care. Pt changed to DNR status today. Awaiting decision from chief nursing officer regarding family visit. and son informed that decision is pending.
[2019-12-23] VITALS (49 sets, daily range): BP systolic 80–125; BP diastolic 29–82
[2019-12-23 06:24] LABS: ALBUMIN 2.6 g/dL (3.4-5.0); CALCIUM 11.2 mg/dL (8.5-10.1); CREATININE 2.4 mg/dL (0.7-1.3); PHOSPHORUS 2.8 mg/dL (2.5-4.9); POTASSIUM 4.4 mmol/L (3.5-5.1)
--- NOTE | 2019-12-23 07:21 | NUR ---
Assessment and intervention documented. Pt remains with eyes closed but responds to voice and stimuli follows commands. Vital signs WNL. no adverse event throughout the night. Pt is stable however not progressing toward goals.
--- NOTE | 2019-12-23 11:02 | NUR ---
Nutrition: When tube feeds resumed following LP, rec goal rate for Nepro formula not to exceed 50 mL/hr to prevent excessive calorie provisions.
[2019-12-23 11:45] LABS: CSF CLARITY CLOUDY; CSF COLOR RED; CSF RBC 19388 /mm3; VOLUME 13 ml
[2019-12-23 11:46] LABS: CSF WBC 45 /mm3 (0-10)
[2019-12-23 11:47] LABS: CSF GLUCOSE 60 mg/dL (40-70); CSF PROTEIN 128 mg/dL (15-45)
[2019-12-23 13:39] LABS: CSF EOSINOPHILS 2 %; CSF LYMPHOCYTES 17 % (40-80); CSF POLYS 76 %
[2019-12-23 13:40] LABS: CSF OTHER 1
--- NOTE | 2019-12-23 16:15 | NUR ---
Chart reviewed. Pt was transferred to ICU from 4W over the weekend due to change in condition. Pt's code status changed to DNR. Pt to have LP today. SW updated [facility] liaison. SW is following to assist as needed with discharge planning.
--- NOTE | 2019-12-23 17:00 | NUR ---
PT NONVERBAL...MAKES SOUNDS AT TIMES...HE HAD LUMBAR PUNCTURE THIS MORN AND CRITICAL LAB WAS CALLED TO DR MADDOX...HE INSTRUCTED ME TO CALL DR Imer UMAÑA FOR CONSULT RE INCREASED WBC AND RBC IN SPINAL FLUID...
[2019-12-23 20:07] LABS: COMPLEMENT-C3 71 mg/dL (82-167); COMPLEMENT-C4 37 mg/dL (14-44); IgA 640 mg/dL (61-437); IgG 629 mg/dL (603-1613); IgM 51 mg/dL (15-143)
[2019-12-24] VITALS (12 sets, daily range): BP systolic 94–137; BP diastolic 47–76
[2019-12-24 05:18] LABS: ALBUMIN 2.5 g/dL (3.4-5.0); DIRECT BILIRUBIN 0.1 mg/dL (<0.1-0.2); TOTAL BILIRUBIN 0.4 mg/dL (0.2-1.0)
[2019-12-24 05:20] LABS: HEMATOCRIT 26.8 % (42.0-52.0); HEMOGLOBIN 9.1 gm/dL (14.0-18.0); MCH 32.5 pg (26.0-34.0); MCV 95.7 fL (80.0-100.0); RBC 2.81 mil/uL (4.50-6.00); RDW 20.1 % (10.5-14.5); WBC 3.6 thou/uL (4.0-11.0)
[2019-12-24 05:25] LABS: ALBUMIN 2.4 g/dL (3.4-5.0); CALCIUM 11.4 mg/dL (8.5-10.1); CREATININE 2.3 mg/dL (0.7-1.3); PHOSPHORUS 2.9 mg/dL (2.5-4.9); POTASSIUM 4.9 mmol/L (3.5-5.1)
--- NOTE | 2019-12-24 08:44 | NUR ---
RN ASSUMED CARE AT 0700. DR. AGUIRRE AT BEDSIDE. ORDERS FOR MEDSURG TRANSFER RECIEVED. PATIENT SLEEPING, VERY DROWSY BUT AROUSABLE.
[2019-12-24 12:07] LABS: KAPPA FREE LIGHT CHAINS 136.3 mg/L (3.3-19.4); KAPPA/LAMBDA RATIO 2.24 (0.26-1.65); LAMBDA FREE LIGHT CHAINS 60.8 mg/L (5.7-26.3)
--- NOTE | 2019-12-24 16:14 | NUR ---
PT CARE ASSUMED A TRANSFER FROM ICU AT 1300. DNR. ORIENTED ONLY TO SELF. GENERALIZES WEAKNESS AND EDEMA. TUBE FEEDINGS AT 60ML WITH NO WATERFLUSHES ORDERED. ON ROOM AIR. PACEMAKER. BM TODAY. MERINO IN PLACE FOR RETENTION. ACHS WITH LOW SLIDING SCALE. IV PATENT WITH NO REDNESS OR EDEMA, FLUIDS INFUSING. Q2 TURNS. FAMILY WAS CALLED ABOUT THE TRANSFER AND HEALTH UPDATE GIVEN. FALL PROTOCOL IN PLACE. CALL LIGHT IN REACH. WILL CONTINUE TO MONITOR.
[2019-12-24 17:07] LABS: HIV ANTIBODY Non Reactive (Non Reactive)
[2019-12-24 17:56] LABS: BE(vivo) -2.1 mmol/L (-2 to +3); HCO3 21.5 mmol/L (22.0-26.0); PCO2 32.5 mmHg (35.0-45.0); PO2 70.6 mmHg (80.0-100.0); pH 7.438 (7.360-7.450); sO2 94.9 % (92.0-98.0)
[2019-12-24 20:07] LABS: SYPHILIS AB Non Reactive (Non Reactive)
--- NOTE | 2019-12-25 05:10 | NUR ---
ASSUMED PATIENT CARE AT 1845. PATIENT IS MINIMALLY RESPONSIVE TO PAIN. COMFORT CARE ORDERS RECEIVED FROM DOCTOR. PATIENT BREATHING IS LABORED AT TIMES, BUT HAS NOT APPEARED IN ACTIVE DISTRESS OR AIR HUNGER. FAMILY TO BE CONTACTED EARLY THIS MORNING WITH UPDATE TO BE GIVEN.
--- NOTE | 2019-12-25 07:27 | NUR ---
Nutrition update: Pt started declining yesterday per EMR. Now on comfort cares and received notice of cancelled nutrition consults. Thus, will defer further nutrition reassessments at this time.
[2019-12-25 08:23] VITALS: BP 114/71
--- NOTE | 2019-12-25 10:24 | PATH ---
[facility] [address] [place] [address] PATHOLOGY RPT PROCEDURE Name: VISHNU HOWARD Room #: 445-P ADM IN .R.#: [id number] Admission: 12/14/19 Date of : 46 Discharge: Report #: [id number] Path Case #: [id number] Note [facility] Accession Number: [id number] TESTS RESULT FLAG UNITS REF RANGE LAB Clinician Provided Cytology Information No. of containers..01 Other (Miscellaneous) Source: CSF DIAGNOSIS: 02 CSF NEGATIVE FOR MALIGNANT EPITHELIAL CELLS. CELLULAR DEGENERATION IS PRESENT. NEGATIVE FOR VIRAL INCLUSIONS OR PARASITES. Pathologist ICD10: 02 A41.9 Signed out by: Jacey Jurado MD, Pathologist NPI- [id number] Performed by: Flavia Hatch, Garbage Depot Worker ([facility]) Gross description: 01 5ML, RED, 1 TP /LCS 12/23/2019 1639 Local FLAG LEGEND: L-Low Normal,H-High Normal,LL-Alert Low,HH-Alert High <-Panic Low,>-Panic High,A-Abnormal,AA-Critical Abnormal Performed at: [address] [place] [address] Jh Pedroza MD, [address] [address] Jacey Jurado MD, Specimen Comment: A courtesy copy of this report has been sent to [phone], [phone] Specimen Comment: [id number] Specimen Comment: Report sent to / DR AGUIRRE Specimen Comment: A duplicate report has been generated due to demographic updates. Performed at: [address], [place], [place] [id number] MD Jh Pedroza MD Phone: [phone]
[2019-12-25 11:08] LABS: LYME ANTIBODY SCREEN* <0.91 ISR (0.00-0.90)
--- NOTE | 2019-12-25 12:29 | NUR ---
PT CARE ASSUMED AT 0700. DROWSY AND NON REACTIVE TO STERNAL RUBS. PT IS BEING TURNED FOR COMFORT. MERINO IN PLACE. LEFT HAND COOLER THEN THE REST OF HIS BODY. PT CONTINUES TO HAVE AIRHUNGER WHICH IS BEING TREATED WITH MORPHINE. IV'S ARE PATENT AND IN PLACE FLUSHING WELL WITH NO REDNESS OR EDEMA. PT IS ON COMFORT CARE ORDERS. HOSPICE HOUSE WILL BE BY TO [facility] PT FOR TRANSFER. WILL CONTINUE TO MONITOR.
--- NOTE | 2019-12-25 12:58 | NUR ---
ON-GOING ASSESSMENT: PT HAS ORDERS TO DISCHARGE TO HOSPICE HOUSE. CM REACHED OUT TO BEDSIDE RN WHO STATES INFORMATION HAS ALREADY BEEN SENT TO [facility] AND DR. AGUIRRE HAD SPOKEN WITH THEM AND PTS . CM FOLLOWED UP WITH [facility] AND SPOKE WITH BREA WHO STATES THAT [facility] IS COMING OUT TO TO AN OUTSITE EVAL. CM SPOKE WITH [facility] WHO REPORTS THEY CAN ACCEPT PT TODAY AND TO SET UP TRANSPORT WHENEVER READY. CM SPOKE WITH PATIENTS KAROLINA WHO IS IN AGREEANCE WITH DISCHARGE PLAN WELL PROVIDING CONSENT FOR OUTSIDE DNR FORM. CM PLACED OUTSIDE DNR FORM ON THE FRONT OF CHART AND ALSO COMPLETED KCFD FORM. CM REACHED OUT TO [facility] AND ARRANGED TRANSPORTATION FOR 1315. CM NOTIFIED [facility] AT [facility] WELL PATIENTS . CM ALSO NOTIFIED BEDSIDE RN. BEDSIDE RN HAS THE NUMBER FOR REPORT. [facility] AT [facility] REPORTS THEY DO NOT NEED ANY OTHER INFORMATION AT THIS TIME AND WILL HAVE INTAKE CALL IF THEY DO. CASE CLOSED.
[2019-12-25 13:09] LABS: CSF VDRL Non Reactive (Non Rea:<1:1)
--- NOTE | 2019-12-25 18:06 | EEG ---
[facility] [place] [address] ELECTROENCEPHALOGRAM Name: VISHNU HOWARD Room #: 445-P [facility] IN M.R.#: [id number] Admission: 12/14/19 Attend Phys: Fab Navarro MD Discharge: 12/25/19 Date of : 46 Report #: [id number] THIS REPORT FOR: //name// CC: Fab Navarro DATE OF SERVICE: 12/18/2019 FINDINGS: This patient's EEG was attempted, but it is intermixed with a lot of artifact, difficult to interpret, but it looks like the background activity is about 6-7 Hz and 30 microvolt. Photic stimulation is unremarkable. The patient became drowsy and that is associated with bilateral slowing. Throughout the record, no active epileptiform activity was noticed. IMPRESSION: This patient's EEG is intermixed with theta range slowing on both sides. That is not possible to evaluate this EEG any further because it is intermixed with a lot of artifact. Thank you very much for this referral. <ELECTRONICALLY SIGNED> By: Clive Mon MD 12/25/19 1806 1735 [id number] Clive Mon MD /nt
--- NOTE | 2019-12-25 18:06 | HC ---
[facility] [place] [address] CONSULTATION Name: VISHNU HOWARD Room #: 445-P [facility] IN M.R.#: [id number] Admission: 12/14/19 Attend Phys: Fab Navarro MD Discharge: 12/25/19 Date of : 46 Report #: [id number] THIS REPORT FOR: cc: Fab Navarro MD, Neal A. MD Khosla, Parveen K. MD ~ CC: Fab Navarro DATE OF SERVICE: 12/18/2019 HISTORY OF PRESENT ILLNESS: A 69-year-old male patient who was discussed with Dr. Navarro before seeing the patient and after seeing the patient. The patient was discussed with the nurses. I tried to take the history from him. He provides no reliable history. In fact, he is not able to talk and does not say anything. He does not even follow simple commands. The tells me that he was admitted to [facility]. I am not sure about the indications, but she indicated that he was here, so that they can look at his kidney as well as the liver. She indicates that he has cirrhosis for some time, but she says that he was never a heavy drinker. He also has significant kidney problems. He is being seen by Nephrology here. She indicated yesterday he was not able to talk on the phone. So this problem is going on at least yesterday, but looks like longer than that, but when he came to Emergency Room, it looks like he was able to talk. [place] [facility] [place] he came in, but that was after discharge from [facility]. REVIEW OF SYSTEMS: Pretty extensive and is summarized in another entry level sales consultant's notes, which were reviewed. It looks like he has been seen for kidney injuries. He is anemic. His creatinine is 2.7. His liver function actually is not too bad. He has an artificial valve, but according to the , it is MRI compatible. It was put in more than one year ago and it looks like he had MRIs here twice in July of this year. thinks he had an MRI at [facility] also. This was his relevant 14-point review of system. PAST MEDICAL HISTORY: Pretty extensive as summarized above. FAMILY HISTORY: Noncontributory. SOCIAL HISTORY: The patient's says that he did drink alcohol, but not heavily. That history is different than what is there in the chart. PHYSICAL EXAMINATION: Indicate he opens his eye. He does not follow any commands properly. His neurological examination is almost impossible to carry out. I could not do the cranial nerve examination. I did see him moving his left arm, but that is the only thing I saw him moving. He did not cooperate with sensory examination. He had no speech output for me. [address] [address] CONSULTATION Name: VISHNU HOWARD Room #: 445-P [facility] IN .R.#: [id number] Admission: 12/14/19 Attend Phys: Fab Navarro MD Discharge: 12/25/19 Date of : 46 Report #: [id number] At this time, further neurological examination will not be possible. His blood pressure is 136/89, respirations 18, pulse is 97 and temperature is 97.6. LABORATORY DATA: Summarized as above. IMPRESSION: This patient needs further workup to determine the etiology of his symptoms. We need an MRI to exclude the possibility of stroke and we need an EEG to look for encephalopathy. Since he does have a kidney problem and he does have a prior history of at least some alcohol drinking, I will give him thiamine for a couple of 3 days. I will check some other workup like TSH, vitamin B12. He will need myasthenia marker, but we need a special permission to do it from the pathologist before we can order. If his MRI does not show any stroke, then he needs an ENT evaluation to directly visualize his visual cord to see how they look. I discussed all of it with the patient's . I also tried to discuss with the patient, but I do not think he understands things. More than 50 minutes of time was spent taking care of this patient today and majority of that time was spent counseling and coordinating. <ELECTRONICALLY SIGNED> By: Clive Mon MD 12/25/19 1806 0935 1137 Clive Mon MD /nt
[2019-12-26 09:08] LABS: ANA INTERPRETATION Negative (Negative)
[2019-12-26 10:08] LABS: GLOMERULR BASEM MEMBRN AB 3 units (0-20)
[2019-12-26 14:07] LABS: GLOBULIN TOTAL 2.5 g/dL (2.2-3.9); M-SPIKE Not Observed g/dL (Not Observed)
[2019-12-27 15:08] LABS: HSV 1 DNA Negative (Negative); HSV 2 DNA Negative (Negative)
[2019-12-28 07:40] LABS: HSV PCR SOURCE CSF
--- NOTE | 2020-01-07 12:28 | EEG ---
[facility] [place] [address] ELECTROENCEPHALOGRAM Name: VISHNU HOWARD Room #: 445-P [facility] IN M.R.#: [id number] Admission: 12/14/19 Attend Phys: Fab Navarro MD Discharge: 12/25/19 Date of : 46 Report #: [id number] THIS REPORT FOR: //name// CC: Fab Navarro DATE OF SERVICE: 12/20/2019 DESCRIPTION OF PROCEDURE: The record demonstrates no evidence of a well-developed posterior dominant rhythm. There is intermixed theta activity throughout the recording. There is no evidence of triphasic waves in the frontal head regions. No epileptiform activity is noted. There is no change in state during the recording. IMPRESSION: This is an abnormal adult record consistent with moderate diffuse cerebral dysfunction. There is no evidence of triphasic waves, which can be seen in hepatic encephalopathy. There is no evidence of epileptiform activity. <ELECTRONICALLY SIGNED> By: Diann Shaikh DO 01/07/20 1228 1109 1209 Diann Shaikh DO /nt
== END 2019-12-25 13:59 | disposition hospice, home (50) | DRG 871 ==
LOC: ER 19:55 → 4W 12-14 00:03 → EROBS 12-14 00:03 → 4W 12-14 00:28 → ICU 12-21 10:56 → 4S 12-24 11:07
PROVIDERS: Emergency Medicine; Hospitalist; Internal Medicine; Internal Medicine Nephrology; Nurse Practitioner; Nurse Practitioner Family; Psychiatry & Neurology Neurology; Specialist; ADMIT Family Medicine; ATTEND Family Medicine
PROC: 009U3ZX Drainage of Spinal Canal, Percutaneous Approach, Diagnostic (ICD-10-PCS; principal; 2019-12-23)
PROC: B01B1ZZ Fluoroscopy of Spinal Cord using Low Osmolar Contrast (ICD-10-PCS; principal; 2019-12-23)
DX: A41.9 Sepsis, unspecified organism (principal); G92 Toxic encephalopathy; N39.0 Urinary tract infection, site not specified; I42.9 Cardiomyopathy, unspecified; N17.9 Acute kidney failure, unspecified; I50.40 Unspecified combined systolic (congestive) and diastolic (congestive) heart failure; I13.0 Hypertensive heart and chronic kidney disease with heart failure and stage 1 through stage 4 chronic kidney disease, or unspecified chronic kidney disease; K21.9 Gastro-esophageal reflux disease without esophagitis; J44.9 Chronic obstructive pulmonary disease, unspecified; N18.3 Chronic kidney disease, stage 3 (moderate); F03.90 Unspecified dementia, unspecified severity, without behavioral disturbance, psychotic disturbance, mood disturbance, and anxiety; G47.33 Obstructive sleep apnea (adult) (pediatric); M19.90 Unspecified osteoarthritis, unspecified site; F10.20 Alcohol dependence, uncomplicated; E87.6 Hypokalemia; B96.20 Unspecified Escherichia coli [E. coli] as the cause of diseases classified elsewhere; B96.4 Proteus (mirabilis) (morganii) as the cause of diseases classified elsewhere; K70.30 Alcoholic cirrhosis of liver without ascites; K72.10 Chronic hepatic failure without coma; E11.22 Type 2 diabetes mellitus with diabetic chronic kidney disease; Z20.828 Contact with and (suspected) exposure to other viral communicable diseases; Z66 Do not resuscitate; R13.10 Dysphagia, unspecified; K76.0 Fatty (change of) liver, not elsewhere classified; Z98.41 Cataract extraction status, right eye; Z90.49 Acquired absence of other specified parts of digestive tract; Z98.42 Cataract extraction status, left eye; Z88.0 Allergy status to penicillin; Z87.891 Personal history of nicotine dependence; Z79.82 Long term (current) use of aspirin; Z79.899 Other long term (current) drug therapy; Z95.810 Presence of automatic (implantable) cardiac defibrillator; K72.90 Hepatic failure, unspecified without coma
CPT/HCPCS: 10045; 10078; 10102

== ENCOUNTER 2019-12-26 14:22 | Emergency (ER) | payer OTHER, BC ==
[~2019-12-26] VITALS: Ht 170.2 cm; Wt 90.7 kg
[2019-12-26 14:59] LABS: ABSOLUTE NEUTROPHILS 7.5 thou/uL (1.4-8.2); BASOPHILS 0.8 % (0.0-2.0); EOSINOPHILS 0.8 % (0.0-3.0); HEMATOCRIT 33.3 % (42.0-52.0); HEMOGLOBIN 10.9 gm/dL (14.0-18.0); LYMPHOCYTES 14.4 % (24.0-44.0); MCH 32.2 pg (26.0-34.0); MCHC 32.7 g/dL (28.0-37.0); MCV 98.4 fL (80.0-100.0); MONOCYTES 7.1 % (1.0-8.0); POLYS 76.9 % (36.0-66.0); RBC 3.39 mil/uL (4.50-6.00); RDW 20.2 % (10.5-14.5); WBC 9.7 thou/uL (4.0-11.0)
[2019-12-26 15:15] LABS: ALBUMIN 2.7 g/dL (3.4-5.0); CALCIUM 11.3 mg/dL (8.5-10.1); POTASSIUM 5.6 mmol/L (3.5-5.1); TOTAL BILIRUBIN 0.6 mg/dL (0.2-1.0); TOTAL PROTEIN 6.2 g/dL (6.4-8.2)
[2019-12-26 15:26] LABS: CREATININE 3.9 mg/dL (0.7-1.3)
[2019-12-26 15:30] LABS: APTT 41.4 Seconds (24.5-32.8); PROTIME 10.5 Seconds (9.3-11.4)
[2019-12-26 15:34] LABS: PLATELET COUNT 157 thou/uL (150-400)
[2019-12-26 15:35] LABS: ANISOCYTOSIS 2+; MACROCYTES FEW; PLATELET ESTIMATE NORMAL
[2019-12-26 16:38] LABS: BE(vivo) -10.8 mmol/L (-2 to +3); HCO3 16.9 mmol/L (22.0-26.0); PCO2 45.2 mmHg (35.0-45.0); PO2 113.4 mmHg (80.0-100.0); sO2 97.1 % (92.0-98.0)
[2019-12-26 19:50] VITALS: BP 131/71
--- NOTE | 2019-12-27 08:00 | EKG ---
[facility] [place] [address] ELECTROCARDIOGRAM REPORT Name: VISHNU HOWARD Room #: DEP [facility].#: [id number] Admission: 12/26/19 Attend Phys: Discharge: 12/26/19 Date of : 46 Report #: [id number] THIS REPORT FOR: cc: Fab Navarro MD, Neal A. MD Couchonnal, Luis F. 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: [facility] : 1950 Requested By: Tyson Irvin Order Number: [id number] MD: Paul Chavez Measurements Intervals [place] Rate: 110 P: 54 RI: 184 QRS: -69 QRSD: 114 T: 98 QT: 329 QTc: 446 Interpretive Statements Sinus tachycardia Borderline IVCD with LAD Inferior infarct, old Lateral leads are also involved Compared to ECG 12/04/2019 19:59:16 Myocardial infarct finding now present Sinus rhythm no longer present First degree AV block no longer present ST (T wave) deviation no longer present Electronically Signed On 12-27-2019 7:59:16 CDT by Paul Chavez [email or web address] <ELECTRONICALLY SIGNED> By: Paul Chavez MD 12/27/19 0759 11 161 Paul Chavez MD /EPI
== END 2019-12-26 20:13 | disposition short-term general hospital (02) ==
LOC: ER 14:22
PROVIDERS: Emergency Medicine
DX: G93.40 Encephalopathy, unspecified (principal); J18.9 Pneumonia, unspecified organism; K21.9 Gastro-esophageal reflux disease without esophagitis; E11.9 Type 2 diabetes mellitus without complications; Z87.891 Personal history of nicotine dependence; Z88.1 Allergy status to other antibiotic agents; Z88.0 Allergy status to penicillin; Z79.899 Other long term (current) drug therapy; Z79.82 Long term (current) use of aspirin; Z90.49 Acquired absence of other specified parts of digestive tract; Z98.890 Other specified postprocedural states; Y95 Nosocomial condition